=== PATIENT | female | born 1960 | race Hispanic/Latino ===

== ENCOUNTER 2020-09-02 12:05 | Inpatient (IN) | payer SELFPAY ==
[~2020-09-02] VITALS: Ht 154.9 cm; Wt 57.2 kg
[2020-09-02] MEDS ORDERED: SODIUM CHLORIDE 0.9% 1000ML 1,000 ML IV STA ×2 (12:37→14:02)
[2020-09-02] MEDS ORDERED: VANCOMYCIN 1GM/NS 250 ML 250 ML IV ONE (12:45)
[2020-09-02] MEDS ORDERED: CEFEPIME 2 GM/NS 0.9% 100 ML 100 ML IV ONE (12:45)
[2020-09-02 13:47] LABS: BASOPHILS % 0.2 % (0.0-1.0); EOSINOPHILS # (AUTO) 0.2 (0.0-0.4); EOSINOPHILS % 0.8 % (0.0-6.0); HEMATOCRIT 29.1 % (34.2-44.1); HEMOGLOBIN 9.6 g/dL (12.0-16.0); LYMPHOCYTES # (AUTO) 0.9 (1.0-3.2); LYMPHOCYTES % 4.5 % (18.0-39.1); MEAN CORPUSCULAR HEMOGLOBIN 29.6 pg (28-32); MEAN CORPUSCULAR VOLUME 89.8 fL (81-99); MONOCYTES # (AUTO) 0.8 (0.2-0.8); MONOCYTES % 4.3 % (4.4-11.3); NEUTROPHILS # (AUTO) 16.9 (2.1-6.9); NEUTROPHILS % 89.3 % (38.7-80.0); RED BLOOD COUNT 3.24 x10e6/uL (3.6-5.1); RED CELL DISTRIBUTION WIDTH 16.1 % (11.7-14.4)
[2020-09-02 13:53] LABS: PLATELET COUNT 7 x10e3/uL (140-360)
[2020-09-02 13:55] LABS: INR 1.06; PROTHROMBIN TIME 14.5 seconds (11.9-14.5)
[2020-09-02 13:56] LABS: PARTIAL THROMBOPLASTIN TIME 36.5 seconds (23.8-35.5)
[2020-09-02 14:11] LABS: ALBUMIN 2.6 g/dL (3.5-5.0); ALBUMIN/GLOBULIN RATIO 0.6 (0.8-2.0); CALCIUM 7.7 mg/dL (8.4-10.2); CREATININE, SERUM 1.14 mg/dL (0.57-1.11); MAGNESIUM 1.5 MG/DL (1.3-2.1)
[2020-09-02 14:15] LABS: B-TYPE NATRIURETIC PEPTIDE2 468.6 pg/mL (0-100)
[2020-09-02 14:19] LABS: CREATINE KINASE MB 0.2 ng/mL (0-5.0)
[2020-09-02 14:23] LABS: CLARITY,URINE SL CLOUDY (CLEAR); COLOR,URINE YELLOW (YELLOW); KETONES,URINE TRACE (NEGATIVE); LEUKOCYTE ESTERASE ,URINE NEGATIVE (NEGATIVE); NITRITE,URINE NEGATIVE (NEGATIVE); PROTEIN,URINE DIPSTICK 2+ (NEGATIVE)
[2020-09-02 14:25] LABS: ANISOCYTOSIS SLIGHT; PLATELET ESTIMATE MARKEDLY DECREASED; PLATELET MORPHOLOGY COMMENT NORMAL; RBC MORPHOLOGY COMMENT NORMAL
[2020-09-02 14:31] LABS: BACTERIA,URINE FEW /HPF; RBC,URINE 0-5 /HPF (0-5); WBC,URINE (MAN) 0-5 /HPF (0-5)
[2020-09-02 14:32] LABS: AMORPHOUS SEDIMENT,URINE FEW (FEW); EPITHELIAL CELLS,URINE MODERATE /LPF
[2020-09-02] MEDS ORDERED: SODIUM CHLORIDE 0.9% 500ML 500 ML ONE (15:48)
[2020-09-02] MEDS: NOREPINEPHRINE INJ 4MG/4ML 8 MG in DEXTROSE 5% 250ML 250 ML IV SCH (17:00)
[2020-09-02] MEDS ORDERED: ONDANSETRON HCL INJ 2MG/ML 2ML 2 MG/ML VIAL IV PRN (17:45)
[2020-09-02] MEDS ORDERED: SODIUM CHLORIDE 0.9% 1000ML 1,000 ML IV SCH (17:45)
[2020-09-02] MEDS ORDERED: SODIUM CHLORIDE 0.9% 100 ML ONE (18:33)
[2020-09-02] MEDS ORDERED: IOPAMIDOL 370 MG/ML 200 ML INFUS..BTL INJ ONE (18:33)
[2020-09-02] MEDS: PIPER-TAZ 3.375 GM 50 ML IV SCH (20:01)
[2020-09-02] MEDS ORDERED: NOREPINEPHRINE 8 MG/D5W 250 ML 250 ML ONE (20:57)
[2020-09-02 21:11] LABS: FERRITIN 99.06 ng/mL (4.63-204.00)
[2020-09-02] MEDS: METRONIDAZOLE 500MG/NS 100ML 100 ML IV SCH (21:15)
[2020-09-02] MEDS ORDERED: SODIUM CHLORIDE 0.9% 250ML 250 ML ONE (21:33)
[2020-09-02] MEDS ORDERED: VASOPRESSIN INJ 20 UNIT/ML VIAL ONE (23:13)
[2020-09-02] MEDS ORDERED: DEXTROSE 5% 50ML 50 ML IV ONE (23:16)
[2020-09-02] MEDS: VASOPRESSIN 60 UNIT in DEXTROSE 5% 50ML 57 ML IV SCH (23:17)
[2020-09-03] VITALS (23 sets, daily range): BP systolic 83–132; BP diastolic 39–75
[2020-09-03] MEDS ORDERED: NOREPINEPHRINE 8 MG/D5W 250 ML 250 ML ONE ×2 (00:22→04:39)
[2020-09-03] MEDS: NOREPINEPHRINE INJ 4MG/4ML 8 MG in DEXTROSE 5% 250ML 250 ML IV SCH ×2 (00:27→05:06)
[2020-09-03 02:26] LABS: CREATINE KINASE MB 5.7 ng/mL (0-5.0)
[2020-09-03] MEDS: PIPER-TAZ 3.375 GM 50 ML IV SCH (03:48)
[2020-09-03] MEDS: METRONIDAZOLE 500MG/NS 100ML 100 ML IV SCH ×3 (05:27→20:37)
[2020-09-03 05:35] LABS: BASOPHILS # (AUTO) 0.1 (0.0-0.1); BASOPHILS % 0.3 % (0.0-1.0); HEMATOCRIT 23.7 % (34.2-44.1); HEMOGLOBIN 7.9 g/dL (12.0-16.0); LYMPHOCYTES # (AUTO) 3.4 (1.0-3.2); LYMPHOCYTES % 9.1 % (18.0-39.1); MEAN CORPUSCULAR HEMOGLOBIN 30.5 pg (28-32); MEAN CORPUSCULAR HGB CONC 33.3 g/dL (31-35); MEAN CORPUSCULAR VOLUME 91.5 fL (81-99); MONOCYTES % 5.4 % (4.4-11.3); NEUTROPHILS # (AUTO) 31.6 (2.1-6.9); PLATELET COUNT 56 x10e3/uL (140-360); RED BLOOD COUNT 2.59 x10e6/uL (3.6-5.1); RED CELL DISTRIBUTION WIDTH 16.9 % (11.7-14.4)
[2020-09-03 05:54] LABS: ALBUMIN 2.1 g/dL (3.5-5.0); ALBUMIN/GLOBULIN RATIO 0.7 (0.8-2.0); ANION GAP 21.4 mmol/L (8-16); CREATININE, SERUM 1.23 mg/dL (0.57-1.11); POTASSIUM 3.4 mmol/L (3.5-5.1)
[2020-09-03 06:02] LABS: CALCIUM 6.4 mg/dL (8.4-10.2)
[2020-09-03] MEDS ORDERED: ACETAMINOPHEN 325 MG TAB PO PRN (07:45)
[2020-09-03] MEDS ORDERED: POTASSIUM CHLORIDE 20MEQ/100ML 100 ML IV ONE (08:30)
[2020-09-03] MEDS ORDERED: CALCIUM GLUCONATE 10% INJ 9.3 MEQ in SODIUM CHLORIDE 0.9% 100 ML 100 ML IV ONE (08:30)
[2020-09-03 10:00] LABS: CREATINE KINASE MB 7.5 ng/mL (0-5.0)
[2020-09-03] MEDS ORDERED: MIDAZOLAM HCL 5MG/ML 10ML VIAL 100 ML IV ONE (10:23)
[2020-09-03] MEDS ORDERED: FENTANYL 2000MCG/NS 250 250 ML ONE (10:23)
[2020-09-03] MEDS ORDERED: SODIUM CHLORIDE 0.9% 1000ML 1,000 ML ONE (10:47)
[2020-09-03] MEDS: FENTANYL 2000MCG/NS 250 250 ML IV SCH (10:52)
[2020-09-03] MEDS: MIDAZOLAM HCL 5MG/ML 10ML VIAL 100 ML IV PRN ×2 (10:54→20:13)
[2020-09-03] MEDS ORDERED: DEXTROSE 50% SYRINGE 50 ML IV PRN ×2 (11:15→14:45)
[2020-09-03 11:45] LABS: BAND NEUTROPHILS % (MANUAL) 2 %; LYMPHOCYTES % (MANUAL) 3 % (19-48); METAMYELOCYTES % (MANUAL) 3 % (0-0); MONOCYTES % (MANUAL) 1 % (3.4-9.0); NEUTROPHILS % (MANUAL) 88 % (40-74); NUCLEATED RED BLOOD CELLS 2; PROMYELOCYTES % (MANUAL) 1 % (0-0); RBC MORPHOLOGY COMMENT NORMAL
[2020-09-03 11:46] LABS: PLATELET MORPHOLOGY COMMENT NORMAL; POLYCHROMASIA FEW
[2020-09-03 11:47] LABS: PLATELET ESTIMATE ADEQUATE; SPHEROCYTES FEW
[2020-09-03] MEDS ORDERED: INSULIN LISPRO 100 UNIT/1 ML 3ML VIAL SQ SCH (12:00)
[2020-09-03] MEDS: CEFEPIME 1GM/NS 0.9% 50 ML 50 ML IV SCH (12:43)
[2020-09-03 12:53] LABS: ABG PCO2 29 mmHg (35-45); ABG PH 7.44 (7.35-7.45); ABG PO2 295 mmHg (80-105)
[2020-09-03 12:54] LABS: ABG HCO3 20 mmol/L (22-26); ABG TCO2 21
[2020-09-03] MEDS ORDERED: SODIUM CHLORIDE 0.9% 250ML 250 ML ONE (13:18)
[2020-09-03] MEDS ORDERED: VECURONIUM BROMIDE FOR INJ 20 MG VIAL ONE (13:22)
[2020-09-03] MEDS ORDERED: ETOMIDATE 2 MG/ML 10 ML INJ IV ONE (13:22)
[2020-09-03] MEDS ORDERED: SUCCINYLCHOLINE CHLORIDE 20 MG/ML 10ML VIAL ONE (13:22)
[2020-09-03] MEDS ORDERED: MIDAZOLAM HCL 2 MG/2 ML VIAL ONE (13:22)
[2020-09-03] MEDS ORDERED: WATER STERILE 10 ML VIAL ONE (13:22)
[2020-09-03 15:27] LABS: FREE T4 (FREE THYROXINE) 0.91 ng/dL (0.8-1.8); THYROID STIMULATING HORMONE 0.708 uIU/mL (0.350-4.940)
[2020-09-03] MEDS ORDERED: INSULIN REGULAR, HUMAN 3ML VL 100 UNIT in SODIUM CHLORIDE 0.9% 100 ML IV SCH ×2 (15:30)
[2020-09-03] MEDS: VASOPRESSIN 60 UNIT in DEXTROSE 5% 50ML 57 ML IV SCH (23:00)
[2020-09-03 23:52] LABS: BASOPHILS # (AUTO) 0.1 (0.0-0.1); BASOPHILS % 0.2 % (0.0-1.0); LYMPHOCYTES # (AUTO) 2.8 (1.0-3.2); LYMPHOCYTES % 11.7 % (18.0-39.1); MEAN CORPUSCULAR HEMOGLOBIN 30.1 pg (28-32); MEAN CORPUSCULAR VOLUME 88.6 fL (81-99); MONOCYTES # (AUTO) 1.2 (0.2-0.8); MONOCYTES % 4.8 % (4.4-11.3); NEUTROPHILS # (AUTO) 19.9 (2.1-6.9); NEUTROPHILS % 82.4 % (38.7-80.0); PLATELET COUNT 78 x10e3/uL (140-360); RED BLOOD COUNT 2.29 x10e6/uL (3.6-5.1); RED CELL DISTRIBUTION WIDTH 17.5 % (11.7-14.4)
[2020-09-03 23:55] LABS: HEMATOCRIT 20.3 % (34.2-44.1); HEMOGLOBIN 6.9 g/dL (12.0-16.0)
[2020-09-04] VITALS (14 sets, daily range): BP systolic 107–141; BP diastolic 54–79
[2020-09-04] MEDS: CEFEPIME 1GM/NS 0.9% 50 ML 50 ML IV SCH ×2 (00:37→18:59)
[2020-09-04] MEDS ORDERED: SODIUM CHLORIDE 0.9% 250ML 250 ML ONE (00:40)
[2020-09-04] MEDS: METRONIDAZOLE 500MG/NS 100ML 100 ML IV SCH ×4 (03:00→19:00)
[2020-09-04 04:52] LABS: BASOPHILS # (AUTO) 0.1 (0.0-0.1); BASOPHILS % 0.3 % (0.0-1.0); EOSINOPHILS # (AUTO) 0.1 (0.0-0.4); EOSINOPHILS % 0.6 % (0.0-6.0); LYMPHOCYTES # (AUTO) 2.1 (1.0-3.2); LYMPHOCYTES % 10.1 % (18.0-39.1); MEAN CORPUSCULAR HEMOGLOBIN 29.5 pg (28-32); MEAN CORPUSCULAR HGB CONC 32.5 g/dL (31-35); MEAN CORPUSCULAR VOLUME 90.6 fL (81-99); MONOCYTES # (AUTO) 0.8 (0.2-0.8); MONOCYTES % 3.8 % (4.4-11.3); NEUTROPHILS # (AUTO) 17.8 (2.1-6.9); NEUTROPHILS % 84.1 % (38.7-80.0); PLATELET COUNT 59 x10e3/uL (140-360); RED BLOOD COUNT 2.24 x10e6/uL (3.6-5.1); RED CELL DISTRIBUTION WIDTH 17.3 % (11.7-14.4)
[2020-09-04 05:04] LABS: HEMATOCRIT 20.3 % (34.2-44.1); HEMOGLOBIN 6.6 g/dL (12.0-16.0)
[2020-09-04 05:14] LABS: ALANINE AMINOTRANSFERASE 20 IU/L (0-55); ALBUMIN/GLOBULIN RATIO 0.6 (0.8-2.0); ALKALINE PHOSPHATASE 106 IU/L (40-150); ANION GAP 12.7 mmol/L (8-16); BLOOD UREA NITROGEN 44 mg/dL (7-26); BUN/CREATININE RATIO 58 (6-25); CARBON DIOXIDE 24 mmol/L (22-29); CHLORIDE 109 mmol/L (98-107); CREATININE, SERUM 0.76 mg/dL (0.57-1.11); EST GLOMERULAR FILTRATION RATE > 60 ML/MIN (60-); GLUCOSE 126 mg/dL (74-118); MAGNESIUM 1.5 MG/DL (1.3-2.1); SODIUM 143 mmol/L (136-145)
[2020-09-04 05:29] LABS: CALCIUM 6.9 mg/dL (8.4-10.2); POTASSIUM 2.7 mmol/L (3.5-5.1)
[2020-09-04] MEDS: MIDAZOLAM HCL 5MG/ML 10ML VIAL 100 ML IV PRN (06:26)
[2020-09-04] MEDS: FENTANYL 2000MCG/NS 250 250 ML IV SCH (06:27)
[2020-09-04] MEDS ORDERED: POTASSIUM CHLORIDE 20MEQ/100ML 200 ML IV ONE (06:30)
[2020-09-04] MEDS ORDERED: SODIUM CHLORIDE 0.9% 250ML 250 ML IV ONE (06:45)
[2020-09-04 07:32] LABS: OVALOCYTES MODERATE; RBC MORPHOLOGY COMMENT ABNORMAL
[2020-09-04 07:33] LABS: POLYCHROMASIA FEW
[2020-09-04 07:35] LABS: PLATELET ESTIMATE MODERATELY DECREASED; PLATELET MORPHOLOGY COMMENT NORMAL
[2020-09-04] MEDS ORDERED: CALCIUM GLUCONATE 10% INJ 9.3 MEQ in SODIUM CHLORIDE 0.9% 100 ML 100 ML IV ONE (11:00)
[2020-09-04] MEDS: PROPOFOL IV EMULSION 10MG/ML 100 ML IV SCH ×2 (11:30→23:30)
[2020-09-04] MEDS: NOREPINEPHRINE INJ 4MG/4ML 8 MG in DEXTROSE 5% 250ML 250 ML IV SCH (16:30)
[2020-09-04 16:38] LABS: ABG HCO3 26 mmol/L (22-26); ABG PCO2 32 mmHg (35-45); ABG PH 7.51 (7.35-7.45); ABG PO2 86 mmHg (80-105); ABG TCO2 27
[2020-09-04] MEDS: VASOPRESSIN 60 UNIT in DEXTROSE 5% 50ML 57 ML IV SCH (23:00)
[2020-09-05] VITALS (14 sets, daily range): BP systolic 92–115; BP diastolic 51–75
[2020-09-05] MEDS: METRONIDAZOLE 500MG/NS 100ML 100 ML IV SCH ×4 (00:02→18:00)
[2020-09-05] MEDS: CEFEPIME 1GM/NS 0.9% 50 ML 50 ML IV SCH ×2 (00:02→13:04)
[2020-09-05] MEDS ORDERED: RIFAXIMIN 200 MG TAB PO STA (00:42)
[2020-09-05] MEDS ORDERED: RIFAXIMIN 550 MG TABLET ONE (01:42)
[2020-09-05 05:07] LABS: BASOPHILS % 0.1 % (0.0-1.0); LYMPHOCYTES # (AUTO) 1.1 (1.0-3.2); LYMPHOCYTES % 11.4 % (18.0-39.1); MEAN CORPUSCULAR HEMOGLOBIN 29.4 pg (28-32); MEAN CORPUSCULAR HGB CONC 32.8 g/dL (31-35); MEAN CORPUSCULAR VOLUME 89.6 fL (81-99); MONOCYTES # (AUTO) 0.4 (0.2-0.8); MONOCYTES % 3.9 % (4.4-11.3); NEUTROPHILS % 83.3 % (38.7-80.0); RED BLOOD COUNT 2.21 x10e6/uL (3.6-5.1); RED CELL DISTRIBUTION WIDTH 18.6 % (11.7-14.4)
[2020-09-05 05:27] LABS: HEMATOCRIT 19.8 % (34.2-44.1); PLATELET COUNT 23 x10e3/uL (140-360)
[2020-09-05 05:28] LABS: HEMOGLOBIN 6.5 g/dL (12.0-16.0)
[2020-09-05 05:29] LABS: ALANINE AMINOTRANSFERASE 17 IU/L (0-55); ALBUMIN 1.8 g/dL (3.5-5.0); ALBUMIN/GLOBULIN RATIO 0.5 (0.8-2.0); ALKALINE PHOSPHATASE 98 IU/L (40-150); ANION GAP 11.3 mmol/L (8-16); BLOOD UREA NITROGEN 32 mg/dL (7-26); BUN/CREATININE RATIO 55 (6-25); CALCIUM 7.2 mg/dL (8.4-10.2); CARBON DIOXIDE 26 mmol/L (22-29); CHLORIDE 114 mmol/L (98-107); CREATININE, SERUM 0.58 mg/dL (0.57-1.11); EST GLOMERULAR FILTRATION RATE > 60 ML/MIN (60-); GLUCOSE 139 mg/dL (74-118); POTASSIUM 3.3 mmol/L (3.5-5.1); SODIUM 148 mmol/L (136-145)
[2020-09-05] MEDS ORDERED: SODIUM CHLORIDE 0.9% 250ML 250 ML IV NR (06:30)
[2020-09-05] MEDS ORDERED: RIFAXIMIN 200 MG TAB PO SCH (09:00)
[2020-09-05] MEDS: RIFAXIMIN 550 MG TABLET PO SCH ×2 (09:02→17:00)
[2020-09-05] MEDS ORDERED: SODIUM CHLORIDE 0.9% 250ML 250 ML ONE ×2 (10:03→16:05)
[2020-09-05 14:51] LABS: ABG HCO3 30 mmol/L (22-26); ABG PCO2 38 mmHg (35-45); ABG PO2 219 mmHg (80-105); ABG TCO2 31
[2020-09-05] MEDS: NOREPINEPHRINE INJ 4MG/4ML 8 MG in DEXTROSE 5% 250ML 250 ML IV SCH (16:30)
[2020-09-05] MEDS: VASOPRESSIN 60 UNIT in DEXTROSE 5% 50ML 57 ML IV SCH (20:46)
[2020-09-05] MEDS: PROPOFOL IV EMULSION 10MG/ML 100 ML IV SCH (21:01)
[2020-09-06] VITALS (24 sets, daily range): BP systolic 100–126; BP diastolic 46–76
[2020-09-06] MEDS: METRONIDAZOLE 500MG/NS 100ML 100 ML IV SCH ×5 (00:10→23:16)
[2020-09-06] MEDS: CEFEPIME 1GM/NS 0.9% 50 ML 50 ML IV SCH ×2 (00:10→11:13)
[2020-09-06 04:35] LABS: BASOPHILS % 0.2 % (0.0-1.0); EOSINOPHILS % 0.1 % (0.0-6.0); HEMATOCRIT 28.3 % (34.2-44.1); HEMOGLOBIN 9.1 g/dL (12.0-16.0); LYMPHOCYTES # (AUTO) 1.5 (1.0-3.2); LYMPHOCYTES % 16.1 % (18.0-39.1); MEAN CORPUSCULAR HEMOGLOBIN 29.2 pg (28-32); MEAN CORPUSCULAR HGB CONC 32.2 g/dL (31-35); MEAN CORPUSCULAR VOLUME 90.7 fL (81-99); MONOCYTES # (AUTO) 0.4 (0.2-0.8); MONOCYTES % 4.4 % (4.4-11.3); NEUTROPHILS # (AUTO) 7.5 (2.1-6.9); NEUTROPHILS % 78.7 % (38.7-80.0); RED BLOOD COUNT 3.12 x10e6/uL (3.6-5.1); RED CELL DISTRIBUTION WIDTH 17.3 % (11.7-14.4)
[2020-09-06 04:40] LABS: PLATELET COUNT 39 x10e3/uL (140-360)
[2020-09-06 04:56] LABS: ALANINE AMINOTRANSFERASE 19 IU/L (0-55); ALBUMIN 1.9 g/dL (3.5-5.0); ALBUMIN/GLOBULIN RATIO 0.5 (0.8-2.0); ALKALINE PHOSPHATASE 97 IU/L (40-150); ANION GAP 12.4 mmol/L (8-16); BLOOD UREA NITROGEN 29 mg/dL (7-26); BUN/CREATININE RATIO 50 (6-25); CALCIUM 7.4 mg/dL (8.4-10.2); CARBON DIOXIDE 26 mmol/L (22-29); CHLORIDE 115 mmol/L (98-107); CREATININE, SERUM 0.58 mg/dL (0.57-1.11); EST GLOMERULAR FILTRATION RATE > 60 ML/MIN (60-); GLUCOSE 97 mg/dL (74-118); MAGNESIUM 1.9 MG/DL (1.3-2.1); POTASSIUM 3.4 mmol/L (3.5-5.1); SODIUM 150 mmol/L (136-145)
[2020-09-06] MEDS ORDERED: ACETAMINOPHEN 325 MG TAB NG PRN (06:45)
[2020-09-06] MEDS ORDERED: POTASSIUM CHLORIDE 20MEQ/100ML 100 ML IV ONE (06:45)
[2020-09-06] MEDS ORDERED: [UNRECOGNIZED DRUG - OTHER] IV ONE (06:47)
[2020-09-06] MEDS ORDERED: POTASSIUM CHLORIDE 20MEQ/100ML 100 ML ONE (06:47)
[2020-09-06] MEDS: RIFAXIMIN 550 MG TABLET PO SCH ×2 (08:01→19:09)
[2020-09-06] MEDS: D5NS/KCL 20MEQ 1,000 ML IV SCH (08:01)
[2020-09-06] MEDS: NOREPINEPHRINE INJ 4MG/4ML 8 MG in DEXTROSE 5% 250ML 250 ML IV SCH (16:30)
[2020-09-06 16:39] LABS: ABG HCO3 30 mmol/L (22-26); ABG PCO2 39 mmHg (35-45); ABG PH 7.49 (7.35-7.45); ABG PO2 196 mmHg (80-105); ABG TCO2 31
[2020-09-06] MEDS ORDERED: SODIUM CHLORIDE 0.9% 250ML 250 ML ONE (17:00)
[2020-09-06] MEDS: VASOPRESSIN 60 UNIT in DEXTROSE 5% 50ML 57 ML IV SCH (22:58)
[2020-09-06] MEDS: MORPHINE SULFATE INJ 2 MG/ML SYR IV PRN (23:07)
[2020-09-07] VITALS (24 sets, daily range): BP systolic 111–129; BP diastolic 60–72
[2020-09-07] MEDS: CEFEPIME 1GM/NS 0.9% 50 ML 50 ML IV SCH ×2 (00:02→13:37)
[2020-09-07] MEDS: D5NS/KCL 20MEQ 1,000 ML IV SCH (01:53)
[2020-09-07 05:04] LABS: BASOPHILS % 0.2 % (0.0-1.0); HEMATOCRIT 28.5 % (34.2-44.1); HEMOGLOBIN 8.9 g/dL (12.0-16.0); LYMPHOCYTES # (AUTO) 0.7 (1.0-3.2); LYMPHOCYTES % 8.9 % (18.0-39.1); MEAN CORPUSCULAR HEMOGLOBIN 28.5 pg (28-32); MEAN CORPUSCULAR HGB CONC 31.2 g/dL (31-35); MEAN CORPUSCULAR VOLUME 91.3 fL (81-99); MONOCYTES # (AUTO) 0.3 (0.2-0.8); MONOCYTES % 3.4 % (4.4-11.3); NEUTROPHILS # (AUTO) 7.1 (2.1-6.9); RED BLOOD COUNT 3.12 x10e6/uL (3.6-5.1); RED CELL DISTRIBUTION WIDTH 17.6 % (11.7-14.4)
[2020-09-07 05:08] LABS: PLATELET COUNT 48 x10e3/uL (140-360)
[2020-09-07 05:19] LABS: ALANINE AMINOTRANSFERASE 19 IU/L (0-55); ALBUMIN/GLOBULIN RATIO 0.6 (0.8-2.0); ALKALINE PHOSPHATASE 118 IU/L (40-150); BLOOD UREA NITROGEN 21 mg/dL (7-26); BUN/CREATININE RATIO 40 (6-25); CARBON DIOXIDE 29 mmol/L (22-29); CHLORIDE 119 mmol/L (98-107); CREATININE, SERUM 0.53 mg/dL (0.57-1.11); EST GLOMERULAR FILTRATION RATE > 60 ML/MIN (60-); GLUCOSE 165 mg/dL (74-118); SODIUM 154 mmol/L (136-145)
[2020-09-07 05:20] LABS: AMYLASE 69 U/L (25-125); LIPASE 72 U/L (8-78)
[2020-09-07 05:39] LABS: ANION GAP 9.8 mmol/L (8-16); POTASSIUM 3.8 mmol/L (3.5-5.1)
[2020-09-07 05:40] LABS: CALCIUM 6.9 mg/dL (8.4-10.2)
[2020-09-07] MEDS: METRONIDAZOLE 500MG/NS 100ML 100 ML IV SCH ×4 (06:06→23:28)
[2020-09-07] MEDS: MORPHINE SULFATE INJ 2 MG/ML SYR IV PRN (06:35)
[2020-09-07] MEDS: RIFAXIMIN 550 MG TABLET PO SCH ×2 (08:43→17:59)
[2020-09-07] MEDS ORDERED: LACTULOSE SYRUP 20 GM/30 ML UDC NG SCH (09:00)
[2020-09-07] MEDS ORDERED: MORPHINE SULFATE INJ 2 MG/ML SYR IV PRN (10:45)
[2020-09-07] MEDS ORDERED: HYDRALAZINE HCL 20 MG/ML VIAL IV PRN (10:45)
[2020-09-07] MEDS ORDERED: ACETAMINOPHEN 325 MG TAB PO PRN (10:45)
[2020-09-07] MEDS: PROPOFOL IV EMULSION 10MG/ML 100 ML IV SCH (11:30)
[2020-09-07] MEDS ORDERED: INSULIN LISPRO 100 UNIT/1 ML 3ML VIAL SQ ONE (15:15)
[2020-09-07] MEDS ORDERED: DEXTROSE 50% SYRINGE 50 ML IV PRN (15:15)
[2020-09-07] MEDS: PANTOPRAZOLE 40 MG 10ML VIAL IV SCH (17:59)
[2020-09-07] MEDS: BALSAM PERU/CASTOR OIL 60 GM OINT...G. TP SCH (18:07)
[2020-09-07] MEDS: INSULIN LISPRO 100 UNIT/1 ML 3ML VIAL SQ SCH ×3 (18:18→21:13)
[2020-09-07] MEDS ORDERED: INSULIN GLARGINE 100 UNITS/ML VIAL SQ SCH (21:00)
[2020-09-08] VITALS (18 sets, daily range): BP systolic 117–134; BP diastolic 69–83
[2020-09-08] MEDS: CEFEPIME 1GM/NS 0.9% 50 ML 50 ML IV SCH ×3 (00:25→23:30)
[2020-09-08] MEDS: METRONIDAZOLE 500MG/NS 100ML 100 ML IV SCH ×3 (06:02→17:14)
[2020-09-08] MEDS: SUCRALFATE 1 GM/10 ML SUSP NG SCH ×4 (06:02→23:30)
[2020-09-08 06:19] LABS: BASOPHILS % 0.3 % (0.0-1.0); HEMATOCRIT 32.2 % (34.2-44.1); LYMPHOCYTES % 14.1 % (18.0-39.1); MEAN CORPUSCULAR HEMOGLOBIN 29.1 pg (28-32); MEAN CORPUSCULAR HGB CONC 31.1 g/dL (31-35); MEAN CORPUSCULAR VOLUME 93.6 fL (81-99); MONOCYTES # (AUTO) 0.4 (0.2-0.8); NEUTROPHILS # (AUTO) 5.6 (2.1-6.9); RED BLOOD COUNT 3.44 x10e6/uL (3.6-5.1); RED CELL DISTRIBUTION WIDTH 17.7 % (11.7-14.4)
[2020-09-08 06:22] LABS: PLATELET COUNT 34 x10e3/uL (140-360)
[2020-09-08 06:40] LABS: INR 1.39
[2020-09-08 06:54] LABS: ALANINE AMINOTRANSFERASE 21 IU/L (0-55); ALBUMIN 1.9 g/dL (3.5-5.0); ALBUMIN/GLOBULIN RATIO 0.5 (0.8-2.0); ALKALINE PHOSPHATASE 178 IU/L (40-150); ANION GAP 11.2 mmol/L (8-16); BLOOD UREA NITROGEN 21 mg/dL (7-26); BUN/CREATININE RATIO 36 (6-25); CALCIUM 7.6 mg/dL (8.4-10.2); CARBON DIOXIDE 28 mmol/L (22-29); CHLORIDE 124 mmol/L (98-107); CREATININE, SERUM 0.59 mg/dL (0.57-1.11); EST GLOMERULAR FILTRATION RATE > 60 ML/MIN (60-); GLUCOSE 338 mg/dL (74-118); POTASSIUM 4.2 mmol/L (3.5-5.1); SODIUM 159 mmol/L (136-145)
[2020-09-08] MEDS: INSULIN LISPRO 100 UNIT/1 ML 3ML VIAL SQ SCH ×7 (07:59→20:47)
[2020-09-08] MEDS: BALSAM PERU/CASTOR OIL 60 GM OINT...G. TP SCH ×2 (08:00→20:41)
[2020-09-08] MEDS: RIFAXIMIN 550 MG TABLET PO SCH ×2 (08:00→16:45)
[2020-09-08] MEDS: PANTOPRAZOLE 40 MG 10ML VIAL IV SCH ×2 (08:00→16:45)
[2020-09-08] MEDS ORDERED: INSULIN GLARGINE 100 UNITS/ML VIAL SQ SCH (21:00)
[2020-09-08] MEDS ORDERED: SODIUM CHLORIDE 0.9% 250ML 250 ML ONE (23:40)
[2020-09-09] VITALS (8 sets, daily range): BP systolic 112–137; BP diastolic 70–79
[2020-09-09] MEDS: METRONIDAZOLE 500MG/NS 100ML 100 ML IV SCH ×4 (00:32→17:20)
[2020-09-09] MEDS: SUCRALFATE 1 GM/10 ML SUSP NG SCH ×3 (05:34→17:20)
[2020-09-09 06:05] LABS: HEMATOCRIT 31.7 % (34.2-44.1); MEAN CORPUSCULAR HEMOGLOBIN 29.4 pg (28-32); MEAN CORPUSCULAR HGB CONC 31.5 g/dL (31-35); MEAN CORPUSCULAR VOLUME 93.2 fL (81-99)
[2020-09-09 06:06] LABS: BASOPHILS % 0.3 % (0.0-1.0); EOSINOPHILS % 0.3 % (0.0-6.0); LYMPHOCYTES # (AUTO) 1.1 (1.0-3.2); LYMPHOCYTES % 14.3 % (18.0-39.1); MONOCYTES # (AUTO) 0.4 (0.2-0.8); NEUTROPHILS # (AUTO) 6.1 (2.1-6.9); NEUTROPHILS % 79.7 % (38.7-80.0); RED CELL DISTRIBUTION WIDTH 17.9 % (11.7-14.4)
[2020-09-09 06:11] LABS: PLATELET COUNT 43 x10e3/uL (140-360)
[2020-09-09 06:26] LABS: ALANINE AMINOTRANSFERASE 24 IU/L (0-55); ALBUMIN 2.1 g/dL (3.5-5.0); ALBUMIN/GLOBULIN RATIO 0.6 (0.8-2.0); ALKALINE PHOSPHATASE 206 IU/L (40-150); BLOOD UREA NITROGEN 18 mg/dL (7-26); BUN/CREATININE RATIO 29 (6-25); CALCIUM 7.4 mg/dL (8.4-10.2); CARBON DIOXIDE 29 mmol/L (22-29); CHLORIDE 122 mmol/L (98-107); CREATININE, SERUM 0.62 mg/dL (0.57-1.11); EST GLOMERULAR FILTRATION RATE > 60 ML/MIN (60-); GLUCOSE 272 mg/dL (74-118); SODIUM 160 mmol/L (136-145)
[2020-09-09] MEDS: INSULIN LISPRO 100 UNIT/1 ML 3ML VIAL SQ SCH ×6 (08:00→16:30)
[2020-09-09] MEDS: PANTOPRAZOLE 40 MG 10ML VIAL IV SCH ×2 (09:19→16:45)
[2020-09-09] MEDS: RIFAXIMIN 550 MG TABLET PO SCH ×2 (09:19→16:45)
[2020-09-09] MEDS: IRON SUCROSE 100 MG in SODIUM CHLORIDE 0.9% 100 ML 100 ML IV SCH (10:00)
[2020-09-09] MEDS: CEFEPIME 1GM/NS 0.9% 50 ML 50 ML IV SCH (12:00)
[2020-09-09] MEDS: BALSAM PERU/CASTOR OIL 60 GM OINT...G. TP SCH ×3 (14:52→21:00)
[2020-09-09] MEDS: TRAMADOL HCL 50 MG TAB PO PRN (16:45)
[2020-09-09] MEDS ORDERED: INSULIN GLARGINE 100 UNITS/ML VIAL SQ SCH (21:00)
[2020-09-09] MEDS: MORPHINE SULFATE INJ 2 MG/ML SYR IV PRN (22:57)
[2020-09-10] VITALS (9 sets, daily range): BP systolic 107–135; BP diastolic 61–77
[2020-09-10] MEDS: SUCRALFATE 1 GM/10 ML SUSP NG SCH ×5 (00:16→23:16)
[2020-09-10] MEDS: METRONIDAZOLE 500 MG TAB PO SCH ×4 (06:03→23:16)
[2020-09-10] MEDS: INSULIN LISPRO 100 UNIT/1 ML 3ML VIAL SQ SCH ×6 (08:00→17:13)
[2020-09-10] MEDS: PANTOPRAZOLE 40 MG 10ML VIAL IV SCH ×2 (08:27→17:12)
[2020-09-10] MEDS: RIFAXIMIN 550 MG TABLET PO SCH ×2 (08:27→17:12)
[2020-09-10] MEDS: MORPHINE SULFATE INJ 2 MG/ML SYR IV PRN ×3 (08:31→17:48)
[2020-09-10 08:56] LABS: BASOPHILS % 0.2 % (0.0-1.0); EOSINOPHILS # (AUTO) 0.1 (0.0-0.4); EOSINOPHILS % 0.9 % (0.0-6.0); HEMATOCRIT 30.7 % (34.2-44.1); HEMOGLOBIN 9.4 g/dL (12.0-16.0); LYMPHOCYTES # (AUTO) 1.9 (1.0-3.2); LYMPHOCYTES % 16.9 % (18.0-39.1); MEAN CORPUSCULAR HEMOGLOBIN 28.2 pg (28-32); MEAN CORPUSCULAR HGB CONC 30.6 g/dL (31-35); MEAN CORPUSCULAR VOLUME 92.2 fL (81-99); MONOCYTES # (AUTO) 0.5 (0.2-0.8); MONOCYTES % 4.4 % (4.4-11.3); NEUTROPHILS # (AUTO) 8.8 (2.1-6.9); NEUTROPHILS % 77.1 % (38.7-80.0); PLATELET COUNT 50 x10e3/uL (140-360); RED BLOOD COUNT 3.33 x10e6/uL (3.6-5.1); RED CELL DISTRIBUTION WIDTH 17.5 % (11.7-14.4)
[2020-09-10 09:42] LABS: ANION GAP 13.1 mmol/L (8-16); BLOOD UREA NITROGEN 19 mg/dL (7-26); BUN/CREATININE RATIO 36 (6-25); CARBON DIOXIDE 25 mmol/L (22-29); CHLORIDE 109 mmol/L (98-107); CREATININE, SERUM 0.53 mg/dL (0.57-1.11); EST GLOMERULAR FILTRATION RATE > 60 ML/MIN (60-); GLUCOSE 309 mg/dL (74-118); MAGNESIUM 1.7 MG/DL (1.3-2.1); PHOSPHORUS 2.8 MG/DL (2.3-4.7); POTASSIUM 4.1 mmol/L (3.5-5.1)
[2020-09-10 09:45] LABS: CALCIUM 6.9 mg/dL (8.4-10.2); SODIUM 143 mmol/L (136-145)
[2020-09-10] MEDS: IRON SUCROSE 100 MG in SODIUM CHLORIDE 0.9% 100 ML 100 ML IV SCH (10:00)
[2020-09-10] MEDS: BALSAM PERU/CASTOR OIL 60 GM OINT...G. TP SCH ×3 (11:25→20:52)
[2020-09-10] MEDS ORDERED: MAGNESIUM SULF 1GRAM/DEXTROSE 100 ML IV ONE (12:00)
[2020-09-10] MEDS ORDERED: INSULIN GLARGINE 100 UNITS/ML VIAL SQ SCH (21:00)
[2020-09-10] MEDS: ACETAMINOPHEN/CODEINE 300MG - 30MG TAB PO PRN (22:17)
[2020-09-11] VITALS (8 sets, daily range): BP systolic 95–139; BP diastolic 50–88
[2020-09-11] MEDS: MORPHINE SULFATE INJ 2 MG/ML SYR IV PRN ×2 (01:24→11:08)
[2020-09-11 02:26] LABS: CLARITY,URINE CLEAR (CLEAR); COLOR,URINE AMBER (YELLOW); KETONES,URINE TRACE (NEGATIVE); LEUKOCYTE ESTERASE ,URINE NEGATIVE (NEGATIVE); NITRITE,URINE POSITIVE (NEGATIVE); PROTEIN,URINE DIPSTICK 1+ (NEGATIVE); URINE UROBILINOGEN 1 mg/dL (0.2 - 1)
[2020-09-11 02:33] LABS: BACTERIA,URINE FEW /HPF; EPITHELIAL CELLS,URINE MODERATE /LPF; MUCUS,URINE MODERATE (RARE)
[2020-09-11] MEDS: ACETAMINOPHEN/CODEINE 300MG - 30MG TAB PO PRN (04:47)
[2020-09-11 05:28] LABS: BASOPHILS % 0.3 % (0.0-1.0); EOSINOPHILS # (AUTO) 0.1 (0.0-0.4); EOSINOPHILS % 1.2 % (0.0-6.0); HEMATOCRIT 31.4 % (34.2-44.1); LYMPHOCYTES % 17.1 % (18.0-39.1); MEAN CORPUSCULAR HEMOGLOBIN 29.4 pg (28-32); MEAN CORPUSCULAR HGB CONC 31.8 g/dL (31-35); MEAN CORPUSCULAR VOLUME 92.4 fL (81-99); MONOCYTES # (AUTO) 0.5 (0.2-0.8); MONOCYTES % 3.8 % (4.4-11.3); NEUTROPHILS # (AUTO) 9.1 (2.1-6.9); NEUTROPHILS % 77.1 % (38.7-80.0); PLATELET COUNT 51 x10e3/uL (140-360); RED CELL DISTRIBUTION WIDTH 16.8 % (11.7-14.4)
[2020-09-11 05:52] LABS: ALANINE AMINOTRANSFERASE 27 IU/L (0-55); ALBUMIN 1.9 g/dL (3.5-5.0); ALBUMIN/GLOBULIN RATIO 0.6 (0.8-2.0); ALKALINE PHOSPHATASE 163 IU/L (40-150); BLOOD UREA NITROGEN 17 mg/dL (7-26); BUN/CREATININE RATIO 37 (6-25); CALCIUM 7.2 mg/dL (8.4-10.2); CARBON DIOXIDE 28 mmol/L (22-29); CHLORIDE 107 mmol/L (98-107); CREATININE, SERUM 0.46 mg/dL (0.57-1.11); EST GLOMERULAR FILTRATION RATE > 60 ML/MIN (60-); GLUCOSE 95 mg/dL (74-118); MAGNESIUM 1.9 MG/DL (1.3-2.1); PHOSPHORUS 3.3 MG/DL (2.3-4.7); SODIUM 142 mmol/L (136-145)
[2020-09-11] MEDS: SUCRALFATE 1 GM/10 ML SUSP NG SCH ×4 (06:00→23:19)
[2020-09-11] MEDS: METRONIDAZOLE 500 MG TAB PO SCH ×4 (06:00→23:19)
[2020-09-11] MEDS: INSULIN LISPRO 100 UNIT/1 ML 3ML VIAL SQ SCH ×6 (07:30→17:04)
[2020-09-11] MEDS: IRON SUCROSE 100 MG in SODIUM CHLORIDE 0.9% 100 ML 100 ML IV SCH (09:04)
[2020-09-11] MEDS: BALSAM PERU/CASTOR OIL 60 GM OINT...G. TP SCH ×3 (09:04→21:00)
[2020-09-11] MEDS: RIFAXIMIN 550 MG TABLET PO SCH ×2 (09:04→16:57)
[2020-09-11] MEDS: PANTOPRAZOLE 40 MG 10ML VIAL IV SCH ×2 (09:04→16:57)
[2020-09-11] MEDS: TRAMADOL HCL 50 MG TAB PO PRN (20:50)
[2020-09-11] MEDS ORDERED: INSULIN GLARGINE 100 UNITS/ML VIAL SQ SCH (21:00)
[2020-09-12] VITALS (7 sets, daily range): BP systolic 95–125; BP diastolic 56–76
[2020-09-12] MEDS: MORPHINE SULFATE INJ 2 MG/ML SYR IV PRN (02:38)
[2020-09-12] MEDS: TRAMADOL HCL 50 MG TAB PO PRN (05:11)
[2020-09-12] MEDS: METRONIDAZOLE 500 MG TAB PO SCH ×3 (05:17→17:02)
[2020-09-12] MEDS: SUCRALFATE 1 GM/10 ML SUSP NG SCH ×3 (05:17→17:02)
[2020-09-12 06:43] LABS: BASOPHILS # (AUTO) 0.1 (0.0-0.1); BASOPHILS % 0.5 % (0.0-1.0); EOSINOPHILS # (AUTO) 0.1 (0.0-0.4); EOSINOPHILS % 0.7 % (0.0-6.0); HEMATOCRIT 29.9 % (34.2-44.1); HEMOGLOBIN 9.6 g/dL (12.0-16.0); LYMPHOCYTES # (AUTO) 2.7 (1.0-3.2); LYMPHOCYTES % 15.9 % (18.0-39.1); MEAN CORPUSCULAR HEMOGLOBIN 29.6 pg (28-32); MEAN CORPUSCULAR HGB CONC 32.1 g/dL (31-35); MEAN CORPUSCULAR VOLUME 92.3 fL (81-99); MONOCYTES # (AUTO) 0.7 (0.2-0.8); MONOCYTES % 3.8 % (4.4-11.3); NEUTROPHILS # (AUTO) 13.5 (2.1-6.9); NEUTROPHILS % 78.5 % (38.7-80.0); PLATELET COUNT 97 x10e3/uL (140-360); RED BLOOD COUNT 3.24 x10e6/uL (3.6-5.1); RED CELL DISTRIBUTION WIDTH 16.8 % (11.7-14.4)
[2020-09-12] MEDS ORDERED: POTASSIUM CHLORIDE 10MEQ EA PO ONE (07:20)
[2020-09-12] MEDS ORDERED: FUROSEMIDE INJ 10 MG/ML 4 ML VIAL IV ONE (07:20)
[2020-09-12 07:25] LABS: ANION GAP 12.4 mmol/L (8-16); BLOOD UREA NITROGEN 14 mg/dL (7-26); BUN/CREATININE RATIO 32 (6-25); CALCIUM 7.4 mg/dL (8.4-10.2); CARBON DIOXIDE 27 mmol/L (22-29); CHLORIDE 107 mmol/L (98-107); CREATININE, SERUM 0.44 mg/dL (0.57-1.11); EST GLOMERULAR FILTRATION RATE > 60 ML/MIN (60-); POTASSIUM 3.4 mmol/L (3.5-5.1); SODIUM 143 mmol/L (136-145)
[2020-09-12] MEDS: INSULIN LISPRO 100 UNIT/1 ML 3ML VIAL SQ SCH ×6 (07:30→16:30)
[2020-09-12 07:38] LABS: GLUCOSE 37 mg/dL (74-118)
[2020-09-12] MEDS: ACETAMINOPHEN/CODEINE 300MG - 30MG TAB PO PRN ×3 (09:08→22:28)
[2020-09-12] MEDS: PANTOPRAZOLE 40 MG 10ML VIAL IV SCH ×2 (09:12→16:35)
[2020-09-12] MEDS: BALSAM PERU/CASTOR OIL 60 GM OINT...G. TP SCH ×3 (09:12→21:00)
[2020-09-12] MEDS: RIFAXIMIN 550 MG TABLET PO SCH ×2 (09:12→16:35)
[2020-09-12] MEDS: IRON SUCROSE 100 MG in SODIUM CHLORIDE 0.9% 100 ML 100 ML IV SCH (09:12)
[2020-09-12] MEDS ORDERED: INSULIN GLARGINE 100 UNITS/ML VIAL SQ SCH (21:00)
[2020-09-12] MEDS: INSULIN GLARGINE 100 UNITS/ML VIAL SQ SCH (21:00)
[2020-09-13] VITALS (8 sets, daily range): BP systolic 97–128; BP diastolic 61–99
[2020-09-13] MEDS: SUCRALFATE 1 GM/10 ML SUSP NG SCH ×4 (06:00→17:14)
[2020-09-13] MEDS: METRONIDAZOLE 500 MG TAB PO SCH ×4 (06:00→17:14)
[2020-09-13] MEDS ORDERED: FUROSEMIDE INJ 10 MG/ML 4 ML VIAL IV ONE (06:15)
[2020-09-13] MEDS ORDERED: POTASSIUM CHLORIDE 10MEQ EA PO ONE (06:15)
[2020-09-13 06:22] LABS: BASOPHILS % 0.4 % (0.0-1.0); EOSINOPHILS % 0.5 % (0.0-6.0); HEMATOCRIT 27.4 % (34.2-44.1); HEMOGLOBIN 8.8 g/dL (12.0-16.0); LYMPHOCYTES # (AUTO) 1.6 (1.0-3.2); LYMPHOCYTES % 20.7 % (18.0-39.1); MEAN CORPUSCULAR HEMOGLOBIN 29.2 pg (28-32); MEAN CORPUSCULAR HGB CONC 32.1 g/dL (31-35); MONOCYTES # (AUTO) 0.5 (0.2-0.8); MONOCYTES % 5.7 % (4.4-11.3); NEUTROPHILS # (AUTO) 5.7 (2.1-6.9); NEUTROPHILS % 72.3 % (38.7-80.0); PLATELET COUNT 70 x10e3/uL (140-360); RED BLOOD COUNT 3.01 x10e6/uL (3.6-5.1); RED CELL DISTRIBUTION WIDTH 17.3 % (11.7-14.4)
[2020-09-13 06:54] LABS: ALANINE AMINOTRANSFERASE 29 IU/L (0-55); ALBUMIN 1.9 g/dL (3.5-5.0); ALBUMIN/GLOBULIN RATIO 0.6 (0.8-2.0); ALKALINE PHOSPHATASE 190 IU/L (40-150); ANION GAP 9.8 mmol/L (8-16); BLOOD UREA NITROGEN 7 mg/dL (7-26); BUN/CREATININE RATIO 15 (6-25); CALCIUM 7.2 mg/dL (8.4-10.2); CARBON DIOXIDE 28 mmol/L (22-29); CHLORIDE 108 mmol/L (98-107); CREATININE, SERUM 0.48 mg/dL (0.57-1.11); EST GLOMERULAR FILTRATION RATE > 60 ML/MIN (60-); GLUCOSE 109 mg/dL (74-118); POTASSIUM 3.8 mmol/L (3.5-5.1); SODIUM 142 mmol/L (136-145)
[2020-09-13] MEDS: INSULIN LISPRO 100 UNIT/1 ML 3ML VIAL SQ SCH ×6 (07:30→16:30)
[2020-09-13] MEDS: PANTOPRAZOLE 40 MG 10ML VIAL IV SCH ×2 (08:09→17:04)
[2020-09-13] MEDS: BALSAM PERU/CASTOR OIL 60 GM OINT...G. TP SCH ×3 (08:09→21:00)
[2020-09-13] MEDS: IRON SUCROSE 100 MG in SODIUM CHLORIDE 0.9% 100 ML 100 ML IV SCH (08:09)
[2020-09-13] MEDS: RIFAXIMIN 550 MG TABLET PO SCH ×2 (08:10→17:04)
[2020-09-13] MEDS ORDERED: GLIMEPIRIDE4 MG PO (12:25)
[2020-09-13] MEDS ORDERED: AMITRIPTYLINE H25 MG PO (12:25)
[2020-09-13] MEDS ORDERED: METFORMIN HCL500 MG PO (12:25)
[2020-09-13] MEDS ORDERED: CYCLOBENZAPRINE10 MG PO (12:25)
[2020-09-13] MEDS ORDERED: FAMOTIDINE20 MG PO (12:25)
[2020-09-13] MEDS ORDERED: FEROSUL325 MG PO (12:25)
[2020-09-13] MEDS ORDERED: NEXIUM40 MG PO (12:25)
[2020-09-13] MEDS ORDERED: NEURONTIN300 MG PO (12:25)
[2020-09-13] MEDS: INSULIN GLARGINE 100 UNITS/ML VIAL SQ SCH (20:28)
[2020-09-14] VITALS: BP 108/66
[2020-09-14 04:00] VITALS: BP 105/66
[2020-09-14] MEDS: SUCRALFATE 1 GM/10 ML SUSP NG SCH ×4 (06:00→17:14)
[2020-09-14] MEDS: METRONIDAZOLE 500 MG TAB PO SCH ×4 (06:00→17:14)
[2020-09-14] MEDS ORDERED: SUCRALFATE1 G/10 ML NG (06:08)
[2020-09-14] MEDS ORDERED: XIFAXAN550 MG PO (06:08)
[2020-09-14] MEDS ORDERED: PANTOPRAZOLE SO40 MG PO (06:08)
[2020-09-14] MEDS ORDERED: FLAGYL500 MG PO (06:08)
[2020-09-14] MEDS ORDERED: FUROSEMIDE20 MG PO (06:29)
[2020-09-14] MEDS ORDERED: ALDACTONE25 MG PO (06:29)
[2020-09-14 07:00] LABS: BASOPHILS % 0.4 % (0.0-1.0); EOSINOPHILS # (AUTO) 0.1 (0.0-0.4); EOSINOPHILS % 0.9 % (0.0-6.0); HEMATOCRIT 25.4 % (34.2-44.1); HEMOGLOBIN 8.4 g/dL (12.0-16.0); LYMPHOCYTES # (AUTO) 1.6 (1.0-3.2); LYMPHOCYTES % 23.3 % (18.0-39.1); MEAN CORPUSCULAR HEMOGLOBIN 31.6 pg (28-32); MEAN CORPUSCULAR HGB CONC 33.1 g/dL (31-35); MEAN CORPUSCULAR VOLUME 95.5 fL (81-99); MONOCYTES # (AUTO) 0.5 (0.2-0.8); MONOCYTES % 7.2 % (4.4-11.3); NEUTROPHILS # (AUTO) 4.7 (2.1-6.9); NEUTROPHILS % 67.9 % (38.7-80.0); PLATELET COUNT 67 x10e3/uL (140-360); RED BLOOD COUNT 2.66 x10e6/uL (3.6-5.1); RED CELL DISTRIBUTION WIDTH 19.9 % (11.7-14.4)
[2020-09-14] MEDS: INSULIN LISPRO 100 UNIT/1 ML 3ML VIAL SQ SCH ×6 (07:30→16:30)
[2020-09-14 07:38] LABS: ALANINE AMINOTRANSFERASE 27 IU/L (0-55); ALBUMIN 1.7 g/dL (3.5-5.0); ALBUMIN/GLOBULIN RATIO 0.5 (0.8-2.0); ALKALINE PHOSPHATASE 174 IU/L (40-150); ANION GAP 10.7 mmol/L (8-16); BLOOD UREA NITROGEN 8 mg/dL (7-26); BUN/CREATININE RATIO 17 (6-25); CALCIUM 7.2 mg/dL (8.4-10.2); CARBON DIOXIDE 28 mmol/L (22-29); CHLORIDE 105 mmol/L (98-107); CREATININE, SERUM 0.46 mg/dL (0.57-1.11); EST GLOMERULAR FILTRATION RATE > 60 ML/MIN (60-); GLUCOSE 142 mg/dL (74-118); POTASSIUM 3.7 mmol/L (3.5-5.1); SODIUM 140 mmol/L (136-145)
[2020-09-14 07:49] VITALS: BP 87/51
[2020-09-14 08:00] VITALS: BP 113/69
[2020-09-14] MEDS: PANTOPRAZOLE 40 MG 10ML VIAL IV SCH ×2 (08:28→16:49)
[2020-09-14] MEDS: RIFAXIMIN 550 MG TABLET PO SCH ×2 (08:28→16:49)
[2020-09-14] MEDS: BALSAM PERU/CASTOR OIL 60 GM OINT...G. TP SCH ×2 (08:30)
[2020-09-14] MEDS ORDERED: SPIRONOLACTONE 25 MG TAB PO SCH (09:00)
[2020-09-14] MEDS ORDERED: FUROSEMIDE 20 MG TAB PO SCH (09:00)
[2020-09-14] MEDS: IRON SUCROSE 100 MG in SODIUM CHLORIDE 0.9% 100 ML 100 ML IV SCH (09:50)
[2020-09-14 12:10] VITALS: BP 110/68
[2020-09-14 16:00] VITALS: BP 128/76
== END 2020-09-14 18:22 | disposition home or self-care (01) | DRG 871 ==
LOC: ER 12:32 → ERHOLD 18:15 → ICU 23:55 → MED/SURG2 09-08 21:10
PROVIDERS: ADMIT Internal Medicine; ATTEND Internal Medicine
PROC: 30233R1 Transfusion of Nonautologous Platelets into Peripheral Vein, Percutaneous Approach (ICD-10-PCS; 2020-09-02)
PROC: 5A1945Z Respiratory Ventilation, 24-96 Consecutive Hours (ICD-10-PCS; principal; 2020-09-03)
PROC: 0BH18EZ Insertion of Endotracheal Airway into Trachea, Via Natural or Artificial Opening Endoscopic (ICD-10-PCS; 2020-09-03)
PROC: 30233N1 Transfusion of Nonautologous Red Blood Cells into Peripheral Vein, Percutaneous Approach (ICD-10-PCS; 2020-09-04)
DX: A41.9 Sepsis, unspecified organism (principal); E11.10 Type 2 diabetes mellitus with ketoacidosis without coma; J96.01 Acute respiratory failure with hypoxia; R65.21 Severe sepsis with septic shock; I21.4 Non-ST elevation (NSTEMI) myocardial infarction; N17.9 Acute kidney failure, unspecified; K51.00 Ulcerative (chronic) pancolitis without complications; A04.72 Enterocolitis due to Clostridium difficile, not specified as recurrent; D62 Acute posthemorrhagic anemia; D69.6 Thrombocytopenia, unspecified; K21.9 Gastro-esophageal reflux disease without esophagitis; K72.90 Hepatic failure, unspecified without coma; K70.30 Alcoholic cirrhosis of liver without ascites; F10.21 Alcohol dependence, in remission; E87.6 Hypokalemia; E83.51 Hypocalcemia; Z74.09 Other reduced mobility; L89.322 Pressure ulcer of left buttock, stage 2; L89.312 Pressure ulcer of right buttock, stage 2; L89.611 Pressure ulcer of right heel, stage 1
CPT/HCPCS: 31500; 36415; 36600; 51700; 70450; 71045; 71250; 74018; 74177; 76705; 80048; 80053; 81001; 82140; 82150; 82270; 82550; 82553; 82607; 82728; 82746; 82805; 82948; 83036; 83540; 83605; 83690; 83735; 83880; 84100; 84439; 84443; 84466; 84478; 84484; 85025; 85045; 85610; 85730; 86039; 86850; 86900; 86920; 87040; 87086; 87493; 93005; 93306; 93970; 94002; 94003; 97139; 99251; 99284; J0330; J0610; J0692; J1756; J1815; J1817; J1940; J2250; J2270; J2405; J2543; J3370; J3475; J3480; J7030; J7040; J7050; J7799; P9016; P9034; Q9967; U0002

== ENCOUNTER → 2020-10-24 | Outpatient (CLI) | payer BC ==
[~2020-10-24] MED LIST: ALDACTONE25 MG PO; AMITRIPTYLINE H25 MG PO; CYCLOBENZAPRINE10 MG PO; FAMOTIDINE20 MG PO; FEROSUL325 MG PO; FLAGYL500 MG PO; FUROSEMIDE20 MG PO; GLIMEPIRIDE4 MG PO; METFORMIN HCL500 MG PO; NEURONTIN300 MG PO; NEXIUM40 MG PO; PANTOPRAZOLE SO40 MG PO; SUCRALFATE1 G/10 ML NG; XIFAXAN550 MG PO
== END ==
LOC: WCC 14:19
PROVIDERS: ATTEND Internal Medicine Infectious Disease
DX: L89.153 Pressure ulcer of sacral region, stage 3 (principal); L89.612 Pressure ulcer of right heel, stage 2; E11.628 Type 2 diabetes mellitus with other skin complications; K74.5 Biliary cirrhosis, unspecified; M79.7 Fibromyalgia; D50.9 Iron deficiency anemia, unspecified; E78.2 Mixed hyperlipidemia; G99.0 Autonomic neuropathy in diseases classified elsewhere; Z74.01 Bed confinement status

== ENCOUNTER → 2020-10-31 | Outpatient (CLI) | payer BC | LOC: WCC 14:41 | PROVIDERS: ATTEND Internal Medicine Infectious Disease | DX: L89.153 Pressure ulcer of sacral region, stage 3 (principal); L89.612 Pressure ulcer of right heel, stage 2; E11.628 Type 2 diabetes mellitus with other skin complications; K74.5 Biliary cirrhosis, unspecified; G99.0 Autonomic neuropathy in diseases classified elsewhere; M79.7 Fibromyalgia; D50.9 Iron deficiency anemia, unspecified; E78.2 Mixed hyperlipidemia; Z74.01 Bed confinement status ==

== ENCOUNTER → 2020-11-07 | Outpatient (CLI) | payer BC | LOC: WCC 16:12 | PROVIDERS: ATTEND Internal Medicine Infectious Disease | DX: L89.153 Pressure ulcer of sacral region, stage 3 (principal); L89.612 Pressure ulcer of right heel, stage 2; E11.628 Type 2 diabetes mellitus with other skin complications; K74.5 Biliary cirrhosis, unspecified; G99.0 Autonomic neuropathy in diseases classified elsewhere; E78.2 Mixed hyperlipidemia; M79.7 Fibromyalgia; D50.9 Iron deficiency anemia, unspecified; Z74.01 Bed confinement status ==

== ENCOUNTER → 2020-12-05 | Outpatient (CLI) | payer BC | LOC: WCC 13:58 | PROVIDERS: ATTEND Internal Medicine Infectious Disease | DX: L89.153 Pressure ulcer of sacral region, stage 3 (principal); L89.612 Pressure ulcer of right heel, stage 2; E11.628 Type 2 diabetes mellitus with other skin complications; G99.0 Autonomic neuropathy in diseases classified elsewhere; K74.5 Biliary cirrhosis, unspecified; E78.2 Mixed hyperlipidemia; M79.7 Fibromyalgia; D50.9 Iron deficiency anemia, unspecified; Z74.01 Bed confinement status ==

== ENCOUNTER → 2020-12-19 | Outpatient (CLI) | payer BC | LOC: WCC 09:14 | PROVIDERS: ATTEND Internal Medicine Infectious Disease | DX: L89.153 Pressure ulcer of sacral region, stage 3 (principal); L89.612 Pressure ulcer of right heel, stage 2; E11.628 Type 2 diabetes mellitus with other skin complications; K74.5 Biliary cirrhosis, unspecified; G99.0 Autonomic neuropathy in diseases classified elsewhere; D50.9 Iron deficiency anemia, unspecified; E78.2 Mixed hyperlipidemia; M79.7 Fibromyalgia; Z74.01 Bed confinement status ==

== ENCOUNTER → 2021-01-02 | Outpatient (CLI) | payer BC | LOC: WCC 10:04 | PROVIDERS: ATTEND Internal Medicine Infectious Disease | DX: L89.153 Pressure ulcer of sacral region, stage 3 (principal); L89.612 Pressure ulcer of right heel, stage 2; E11.628 Type 2 diabetes mellitus with other skin complications; E78.2 Mixed hyperlipidemia; G99.0 Autonomic neuropathy in diseases classified elsewhere; D50.9 Iron deficiency anemia, unspecified; K74.5 Biliary cirrhosis, unspecified; M79.7 Fibromyalgia; Z74.01 Bed confinement status ==

== ENCOUNTER → 2021-01-23 | Outpatient (CLI) | payer BC | LOC: WCC 10:08 | PROVIDERS: ATTEND Internal Medicine Infectious Disease | DX: L89.153 Pressure ulcer of sacral region, stage 3 (principal); L89.612 Pressure ulcer of right heel, stage 2; E11.628 Type 2 diabetes mellitus with other skin complications; K74.5 Biliary cirrhosis, unspecified; G99.0 Autonomic neuropathy in diseases classified elsewhere; D50.9 Iron deficiency anemia, unspecified; E78.2 Mixed hyperlipidemia; M79.7 Fibromyalgia; Z74.01 Bed confinement status ==

== ENCOUNTER → 2021-04-07 | Outpatient (CLI) | payer BC | LOC: US 08:25 | PROVIDERS: ATTEND Internal Medicine Gastroenterology | DX: K70.30 Alcoholic cirrhosis of liver without ascites (principal) | CPT/HCPCS: 76705 ==

== ENCOUNTER → 2022-06-15 | Outpatient (CLI) | payer MEDICARE | LOC: US 08:07 | PROVIDERS: ATTEND Internal Medicine Gastroenterology | DX: K70.30 Alcoholic cirrhosis of liver without ascites (principal) | CPT/HCPCS: 76700 ==

== ENCOUNTER → 2022-08-27 | Day surgery (SDC) | payer MEDICARE ==
[2022-08-24 08:15] LABS: BASOPHILS % 0.4 % (0.0-1.0); EOSINOPHILS # (AUTO) 0.1 (0.0-0.4); EOSINOPHILS % 2.8 % (0.0-6.0); HEMATOCRIT 36.7 % (34.2-44.1); HEMOGLOBIN 11.4 g/dL (12.0-16.0); LYMPHOCYTES # (AUTO) 0.7 (1.0-3.2); LYMPHOCYTES % 28.2 % (18.0-39.1); MEAN CORPUSCULAR HGB CONC 31.1 g/dL (31-35); MEAN CORPUSCULAR VOLUME 103.1 fL (81-99); MONOCYTES # (AUTO) 0.2 (0.2-0.8); MONOCYTES % 9.1 % (4.4-11.3); NEUTROPHILS # (AUTO) 1.5 (2.1-6.9); NEUTROPHILS % 59.5 % (38.7-80.0); PLATELET COUNT 47 x10e3/uL (140-360); RED BLOOD COUNT 3.56 x10e6/uL (3.6-5.1); RED CELL DISTRIBUTION WIDTH 16.2 % (11.7-14.4)
[2022-08-24 08:30] LABS: INR 1.15; PROTHROMBIN TIME 14.9 seconds (11.9-14.5)
[2022-08-24 08:31] LABS: PARTIAL THROMBOPLASTIN TIME 33.2 seconds (23.8-35.5)
[2022-08-24 08:38] LABS: ALBUMIN 3.5 g/dL (3.5-5.0); ALBUMIN/GLOBULIN RATIO 0.9 (0.8-2.0); ANION GAP 16.1 mmol/L (8-16); CALCIUM 8.9 mg/dL (8.4-10.2); CREATININE, SERUM 0.72 mg/dL (0.57-1.11); POTASSIUM 4.1 mmol/L (3.5-5.1)
[~2022-08-27] MED LIST changes: +GLIPIZIDE5 MG PO; +HEMOCYTE PLUS1 EACH PO; +LIDOCAINE HCL 2% LOCAL INJ 5 ML SDV VIAL INJ ONE; +POVIDONE IODINE 0.05% 0.05 % ML PO ONE; +PROPRANOLOL HCL40 MG PO
[2022-08-27 11:25] VITALS: BP 112/60
== END | disposition home or self-care (01) ==
LOC: OR 07:47
PROVIDERS: ATTEND Internal Medicine Gastroenterology
DX: K74.60 Unspecified cirrhosis of liver (principal); I85.10 Secondary esophageal varices without bleeding; K76.6 Portal hypertension; K31.89 Other diseases of stomach and duodenum; Z71.3 Dietary counseling and surveillance; D64.89 Other specified anemias; E11.9 Type 2 diabetes mellitus without complications; M06.9 Rheumatoid arthritis, unspecified; Z01.812 Encounter for preprocedural laboratory examination; Z79.84 Long term (current) use of oral hypoglycemic drugs; Z79.899 Other long term (current) drug therapy; Z68.30 Body mass index [BMI] 30.0-30.9, adult
CPT/HCPCS: 36415 ×2; 43244; 80053; 82948; 85025; 85610; 85730; C9113; J2001; 43239; 43255

== ENCOUNTER 2022-09-15 03:17 | Inpatient (IN) | payer MEDICARE ==
[~2022-09-15] VITALS: Ht 154.9 cm; Wt 57.2 kg
[~2022-09-15 03:17] MED LIST changes: -LIDOCAINE HCL 2% LOCAL INJ 5 ML SDV VIAL INJ ONE; -POVIDONE IODINE 0.05% 0.05 % ML PO ONE
[2022-09-15] MEDS ORDERED: SODIUM CHLORIDE 0.9% 1000ML 1,000 ML IV STA ×2 (03:33→03:40)
[2022-09-15] MEDS ORDERED: Morphine 4mg INJECTION 4 MG/ML INJ IV PRN (03:45)
[2022-09-15 03:53] LABS: BASOPHILS % 0.2 % (0.0-1.0); EOSINOPHILS # (AUTO) 0.1 (0.0-0.4); EOSINOPHILS % 0.7 % (0.0-6.0); HEMATOCRIT 36.9 % (34.2-44.1); HEMOGLOBIN 11.4 g/dL (12.0-16.0); LYMPHOCYTES # (AUTO) 0.3 (1.0-3.2); LYMPHOCYTES % 3.7 % (18.0-39.1); MEAN CORPUSCULAR HEMOGLOBIN 32.3 pg (28-32); MEAN CORPUSCULAR HGB CONC 30.9 g/dL (31-35); MEAN CORPUSCULAR VOLUME 104.5 fL (81-99); MONOCYTES # (AUTO) 0.3 (0.2-0.8); MONOCYTES % 3.7 % (4.4-11.3); NEUTROPHILS # (AUTO) 8.3 (2.1-6.9); NEUTROPHILS % 91.4 % (38.7-80.0); PLATELET COUNT 64 x10e3/uL (140-360); RED BLOOD COUNT 3.53 x10e6/uL (3.6-5.1); RED CELL DISTRIBUTION WIDTH 15.5 % (11.7-14.4)
[2022-09-15 04:01] LABS: INR 1.14; PROTHROMBIN TIME 14.8 seconds (11.9-14.5)
[2022-09-15] MEDS: ONDANSETRON HCL INJ 2MG/ML 2ML 2 MG/ML VIAL IV PRN ×2 (04:01→09:41)
[2022-09-15 04:02] LABS: PARTIAL THROMBOPLASTIN TIME 31.7 seconds (23.8-35.5)
[2022-09-15 04:09] LABS: CREATINE KINASE 96 IU/L (29-168)
[2022-09-15 04:13] LABS: ALBUMIN 3.4 g/dL (3.5-5.0); ALBUMIN/GLOBULIN RATIO 0.9 (0.8-2.0); ANION GAP 17.3 mmol/L (8-16); CALCIUM 8.9 mg/dL (8.4-10.2); CREATININE, SERUM 0.8 mg/dL (0.57-1.11); POTASSIUM 4.3 mmol/L (3.5-5.1)
[2022-09-15] MEDS: SODIUM CHLORIDE 0.9% 1000ML 1,000 ML IV SCH ×3 (06:55→20:44)
[2022-09-15] MEDS ORDERED: OCTREOTIDE ACETATE 0.05 MG/ML AMP IV ONE (09:45)
[2022-09-15] MEDS ORDERED: MIDODRINE HCL 5 MG TABLET PO STA (10:14)
[2022-09-15] MEDS ORDERED: MIDODRINE HCL 5 MG TABLET ONE (10:33)
[2022-09-15 10:35] LABS: BASOPHILS % 0.2 % (0.0-1.0); EOSINOPHILS % 0.4 % (0.0-6.0); HEMATOCRIT 29.8 % (34.2-44.1); HEMOGLOBIN 9.2 g/dL (12.0-16.0); LYMPHOCYTES # (AUTO) 0.3 (1.0-3.2); LYMPHOCYTES % 5.2 % (18.0-39.1); MEAN CORPUSCULAR HEMOGLOBIN 32.1 pg (28-32); MEAN CORPUSCULAR HGB CONC 30.9 g/dL (31-35); MEAN CORPUSCULAR VOLUME 103.8 fL (81-99); MONOCYTES # (AUTO) 0.2 (0.2-0.8); MONOCYTES % 3.8 % (4.4-11.3); NEUTROPHILS # (AUTO) 4.7 (2.1-6.9); PLATELET COUNT 41 x10e3/uL (140-360); RED BLOOD COUNT 2.87 x10e6/uL (3.6-5.1); RED CELL DISTRIBUTION WIDTH 15.6 % (11.7-14.4)
[2022-09-15] MEDS: OCTREOTIDE ACETATE 500 MCG in SODIUM CHLORIDE 0.9% 250ML 249 ML IV SCH ×2 (10:39→20:44)
[2022-09-15 11:07] LABS: CREATINE KINASE 75 IU/L (29-168)
[2022-09-15 12:10] VITALS: BP 93/61
[2022-09-15 12:12] VITALS: BP 93/61
[2022-09-15] MEDS ORDERED: METOCLOPRAMIDE HCL 10 MG/2ML VIAL ONE (12:24)
[2022-09-15] MEDS ORDERED: LIDOCAINE HCL 2% LOCAL INJ 5 ML SDV VIAL INJ ONE (12:24)
[2022-09-15] MEDS ORDERED: DEXMEDETOMIDINE HCL 200 MCG/2 ML VIAL ONE (12:24)
[2022-09-15] MEDS ORDERED: PROPOFOL IV EMULSION 10 MG/ML 20 ML VIAL ONE (12:24)
[2022-09-15] MEDS ORDERED: METOPROLOL TARTRATE INJ 1 MG/ML VIAL IV PRN (12:30)
[2022-09-15] MEDS ORDERED: ACETAMINOPHEN 325 MG TAB PO PRN (12:30)
[2022-09-15 13:01] VITALS: BP 93/61
[2022-09-15] MEDS ORDERED: AMITRIPTYLINE HCL 25 MG TAB PO PRN (13:15)
[2022-09-15] MEDS ORDERED: CYCLOBENZAPRINE HCL 10 MG TAB PO PRN (13:15)
[2022-09-15] MEDS ORDERED: SODIUM CHLORIDE 0.9% 250ML 250 ML ONE (13:57)
[2022-09-15] MEDS: SODIUM FERRIC GLUCONATE COMPLX 125 MG in SODIUM CHLORIDE 0.9% 100 ML IV SCH (14:09)
[2022-09-15] MEDS: GABAPENTIN 300 MG CAP PO SCH ×2 (14:14→20:43)
[2022-09-15 14:21] LABS: HEMATOCRIT 29.5 % (34.2-44.1)
[2022-09-15] MEDS: PROPRANOLOL HCL 40 MG TAB PO SCH (16:49)
[2022-09-15 17:36] VITALS: BP 80/49
[2022-09-15] MEDS: SUCRALFATE 1 GM/10 ML SUSP NG SCH (18:00)
[2022-09-15 18:36] LABS: HEMATOCRIT 27.7 % (34.2-44.1); HEMOGLOBIN 8.4 g/dL (12.0-16.0)
[2022-09-15 19:04] LABS: CREATINE KINASE MB 0.5 ng/mL (0-5.0)
[2022-09-15 20:00] VITALS: BP 108/62
[2022-09-16] VITALS (15 sets, daily range): BP systolic 80–168; BP diastolic 47–138
[2022-09-16 00:48] LABS: % IRON SATURATION 85 % (15-50); IRON 333 ug/dL (50-170); TOTAL IRON BINDING CAPACITY 393 ug/dL (261-478); TRANSFERRIN 281 mg/dL (180-382)
[2022-09-16] MEDS: MIDODRINE 2.5 MG TAB PO SCH ×4 (02:02→17:35)
[2022-09-16] MEDS: PROPRANOLOL HCL 40 MG TAB PO SCH ×5 (02:02→17:00)
[2022-09-16] MEDS: OCTREOTIDE ACETATE 500 MCG in SODIUM CHLORIDE 0.9% 250ML 249 ML IV SCH ×3 (04:55→23:46)
[2022-09-16] MEDS: SODIUM CHLORIDE 0.9% 1000ML 1,000 ML IV SCH ×3 (04:55→19:45)
[2022-09-16] MEDS: SUCRALFATE 1 GM/10 ML SUSP NG SCH ×4 (06:00→17:31)
[2022-09-16 06:04] LABS: BASOPHILS % 0.5 % (0.0-1.0); EOSINOPHILS # (AUTO) 0.1 (0.0-0.4); EOSINOPHILS % 2.4 % (0.0-6.0); HEMATOCRIT 26.7 % (34.2-44.1); LYMPHOCYTES # (AUTO) 0.6 (1.0-3.2); LYMPHOCYTES % 26.3 % (18.0-39.1); MEAN CORPUSCULAR HEMOGLOBIN 32.4 pg (28-32); MONOCYTES # (AUTO) 0.2 (0.2-0.8); MONOCYTES % 8.1 % (4.4-11.3); NEUTROPHILS # (AUTO) 1.3 (2.1-6.9); NEUTROPHILS % 62.7 % (38.7-80.0); PLATELET COUNT 30 x10e3/uL (140-360); RED BLOOD COUNT 2.47 x10e6/uL (3.6-5.1); RED CELL DISTRIBUTION WIDTH 15.9 % (11.7-14.4)
[2022-09-16 06:07] LABS: MEAN CORPUSCULAR VOLUME 108.1 fL (81-99)
[2022-09-16 06:43] LABS: ALBUMIN 2.7 g/dL (3.5-5.0); ANION GAP 11.5 mmol/L (8-16); CREATININE, SERUM 0.56 mg/dL (0.57-1.11); POTASSIUM 3.5 mmol/L (3.5-5.1)
[2022-09-16 07:16] LABS: CHOL/HDL RATIO 3.1 (3.0-3.6); MAGNESIUM 1.5 MG/DL (1.3-2.1); PHOSPHORUS 3.3 MG/DL (2.3-4.7)
[2022-09-16 07:39] LABS: THYROID STIMULATING HORMONE 0.295 uIU/mL (0.350-4.940)
[2022-09-16] MEDS: GABAPENTIN 300 MG CAP PO SCH ×3 (09:00→21:00)
[2022-09-16] MEDS: FUROSEMIDE 20 MG TAB PO SCH (09:00)
[2022-09-16] MEDS ORDERED: DESMOPRESSIN ACETATE 4 MCG/ML VIAL IV ONE (09:00)
[2022-09-16 10:22] LABS: HEMOGLOBIN 8.1 g/dL (12.0-16.0)
[2022-09-16] MEDS ORDERED: SODIUM CHLORIDE 0.9% 250ML 250 ML ONE (12:20)
[2022-09-16] MEDS ORDERED: MAGNESIUM SULFATE 2GM/50ML 50 ML IV ONE ×2 (13:00→19:24)
[2022-09-16] MEDS ORDERED: EPINEPHRINE HCL 1:1000 1ML 1 MG/ML AMP ONE (15:21)
[2022-09-16 15:40] LABS: BASOPHILS % 0.3 % (0.0-1.0); EOSINOPHILS # (AUTO) 0.1 (0.0-0.4); EOSINOPHILS % 2.4 % (0.0-6.0); HEMOGLOBIN 7.4 g/dL (12.0-16.0); LYMPHOCYTES % 31.5 % (18.0-39.1); MEAN CORPUSCULAR HGB CONC 29.6 g/dL (31-35); MEAN CORPUSCULAR VOLUME 108.2 fL (81-99); MONOCYTES # (AUTO) 0.4 (0.2-0.8); MONOCYTES % 10.7 % (4.4-11.3); NEUTROPHILS # (AUTO) 1.8 (2.1-6.9); NEUTROPHILS % 53.9 % (38.7-80.0); RED BLOOD COUNT 2.31 x10e6/uL (3.6-5.1); RED CELL DISTRIBUTION WIDTH 15.9 % (11.7-14.4)
[2022-09-16 15:47] LABS: PLATELET COUNT 44 x10e3/uL (140-360)
[2022-09-16] MEDS ORDERED: CEFTRIAXONE 1 GM VIAL ONE (15:50)
[2022-09-16] MEDS ORDERED: SODIUM CHLORIDE 0.9% 1000ML 1,000 ML ONE (16:00)
[2022-09-16 18:04] LABS: HEMATOCRIT 24.9 % (34.2-44.1); HEMOGLOBIN 7.3 g/dL (12.0-16.0)
[2022-09-16] MEDS: METOCLOPRAMIDE HCL 10 MG/2ML VIAL IV SCH (18:04)
[2022-09-16] MEDS: SODIUM FERRIC GLUCONATE COMPLX 125 MG in SODIUM CHLORIDE 0.9% 100 ML IV SCH (19:14)
[2022-09-17] VITALS (20 sets, daily range): BP systolic 84–136; BP diastolic 42–109
[2022-09-17] MEDS: METOCLOPRAMIDE HCL 10 MG/2ML VIAL IV SCH ×4 (00:46→16:46)
[2022-09-17] MEDS: SUCRALFATE 1 GM/10 ML SUSP NG SCH ×4 (00:46→16:45)
[2022-09-17] MEDS: SODIUM CHLORIDE 0.9% 1000ML 1,000 ML IV SCH (03:36)
[2022-09-17] MEDS: OCTREOTIDE ACETATE 500 MCG in SODIUM CHLORIDE 0.9% 250ML 249 ML IV SCH ×2 (06:12→16:01)
[2022-09-17 07:15] LABS: POTASSIUM 3.4 mmol/L (3.5-5.1)
[2022-09-17 07:16] LABS: ALBUMIN 2.6 g/dL (3.5-5.0); ANION GAP 10.4 mmol/L (8-16); CALCIUM 7.2 mg/dL (8.4-10.2); CREATININE, SERUM 0.49 mg/dL (0.57-1.11)
[2022-09-17] MEDS: GABAPENTIN 300 MG CAP PO SCH ×3 (08:13→21:21)
[2022-09-17] MEDS: FUROSEMIDE 20 MG TAB PO SCH (08:13)
[2022-09-17] MEDS: MIDODRINE 2.5 MG TAB PO SCH ×3 (08:13→14:52)
[2022-09-17] MEDS: PROPRANOLOL HCL 40 MG TAB PO SCH ×3 (08:14→18:00)
[2022-09-17] MEDS: POTASSIUM CHLORIDE 20MEQ/100ML 100 ML IV SCH ×2 (08:16→10:43)
[2022-09-17] MEDS: BALSAM PERU/CASTOR OIL 60 GM OINT...G. TP SCH (08:16)
[2022-09-17 09:03] LABS: ALBUMIN 2.6 g/dL (3.5-5.0); ALBUMIN/GLOBULIN RATIO 0.9 (0.8-2.0); ANION GAP 10.3 mmol/L (8-16); CALCIUM 7.5 mg/dL (8.4-10.2); CREATININE, SERUM 0.57 mg/dL (0.57-1.11); POTASSIUM 3.3 mmol/L (3.5-5.1)
[2022-09-17] MEDS: SODIUM FERRIC GLUCONATE COMPLX 125 MG in SODIUM CHLORIDE 0.9% 100 ML IV SCH (14:54)
[2022-09-18] VITALS (8 sets, daily range): BP systolic 91–123; BP diastolic 50–73
[2022-09-18] MEDS: OCTREOTIDE ACETATE 500 MCG in SODIUM CHLORIDE 0.9% 250ML 249 ML IV SCH ×2 (02:46→16:08)
[2022-09-18] MEDS: METOCLOPRAMIDE HCL 10 MG/2ML VIAL IV SCH ×5 (04:53→23:54)
[2022-09-18] MEDS: SUCRALFATE 1 GM/10 ML SUSP NG SCH ×5 (04:53→23:54)
[2022-09-18 05:25] LABS: BASOPHILS % 0.3 % (0.0-1.0); EOSINOPHILS # (AUTO) 0.1 (0.0-0.4); EOSINOPHILS % 1.9 % (0.0-6.0); HEMATOCRIT 27.1 % (34.2-44.1); HEMOGLOBIN 8.4 g/dL (12.0-16.0); LYMPHOCYTES # (AUTO) 1.2 (1.0-3.2); LYMPHOCYTES % 19.8 % (18.0-39.1); MEAN CORPUSCULAR HEMOGLOBIN 32.4 pg (28-32); MEAN CORPUSCULAR VOLUME 104.6 fL (81-99); MONOCYTES # (AUTO) 0.5 (0.2-0.8); NEUTROPHILS % 68.6 % (38.7-80.0); PLATELET COUNT 53 x10e3/uL (140-360); RED BLOOD COUNT 2.59 x10e6/uL (3.6-5.1); RED CELL DISTRIBUTION WIDTH 15.1 % (11.7-14.4)
[2022-09-18 05:42] LABS: ANION GAP 11.6 mmol/L (8-16); CALCIUM 7.9 mg/dL (8.4-10.2); CREATININE, SERUM 0.58 mg/dL (0.57-1.11); POTASSIUM 3.6 mmol/L (3.5-5.1)
[2022-09-18] MEDS: PROPRANOLOL HCL 40 MG TAB PO SCH ×2 (08:31→15:55)
[2022-09-18] MEDS: MIDODRINE 2.5 MG TAB PO SCH ×3 (08:32→15:56)
[2022-09-18] MEDS: FUROSEMIDE 20 MG TAB PO SCH (08:32)
[2022-09-18] MEDS: GABAPENTIN 300 MG CAP PO SCH ×3 (08:32→20:26)
[2022-09-18] MEDS: BALSAM PERU/CASTOR OIL 60 GM OINT...G. TP SCH (15:08)
[2022-09-19] VITALS (7 sets, daily range): BP systolic 95–111; BP diastolic 45–65
[2022-09-19] MEDS: OCTREOTIDE ACETATE 500 MCG in SODIUM CHLORIDE 0.9% 250ML 249 ML IV SCH (05:03)
[2022-09-19] MEDS: SUCRALFATE 1 GM/10 ML SUSP NG SCH ×4 (05:38→22:44)
[2022-09-19] MEDS: METOCLOPRAMIDE HCL 10 MG/2ML VIAL IV SCH ×4 (05:39→22:44)
[2022-09-19 05:49] LABS: BASOPHILS % 0.4 % (0.0-1.0); EOSINOPHILS # (AUTO) 0.1 (0.0-0.4); EOSINOPHILS % 2.2 % (0.0-6.0); HEMATOCRIT 27.2 % (34.2-44.1); HEMOGLOBIN 8.3 g/dL (12.0-16.0); LYMPHOCYTES # (AUTO) 1.6 (1.0-3.2); LYMPHOCYTES % 28.2 % (18.0-39.1); MEAN CORPUSCULAR HEMOGLOBIN 32.3 pg (28-32); MEAN CORPUSCULAR HGB CONC 30.5 g/dL (31-35); MEAN CORPUSCULAR VOLUME 105.8 fL (81-99); MONOCYTES # (AUTO) 0.5 (0.2-0.8); MONOCYTES % 8.3 % (4.4-11.3); NEUTROPHILS # (AUTO) 3.3 (2.1-6.9); NEUTROPHILS % 59.3 % (38.7-80.0); PLATELET COUNT 61 x10e3/uL (140-360); RED BLOOD COUNT 2.57 x10e6/uL (3.6-5.1); RED CELL DISTRIBUTION WIDTH 15.6 % (11.7-14.4)
[2022-09-19 06:21] LABS: ALBUMIN 2.9 g/dL (3.5-5.0); ALBUMIN/GLOBULIN RATIO 0.9 (0.8-2.0); ANION GAP 8.4 mmol/L (8-16); CALCIUM 7.9 mg/dL (8.4-10.2); CREATININE, SERUM 0.59 mg/dL (0.57-1.11); POTASSIUM 3.4 mmol/L (3.5-5.1)
[2022-09-19] MEDS: MIDODRINE 2.5 MG TAB PO SCH ×3 (08:14→16:47)
[2022-09-19] MEDS: PROPRANOLOL HCL 40 MG TAB PO SCH ×2 (08:14→16:48)
[2022-09-19] MEDS: GABAPENTIN 300 MG CAP PO SCH ×3 (08:15→21:12)
[2022-09-19] MEDS: FUROSEMIDE 20 MG TAB PO SCH (08:15)
[2022-09-19] MEDS: BALSAM PERU/CASTOR OIL 60 GM OINT...G. TP SCH (16:49)
[2022-09-20] MEDS: OCTREOTIDE ACETATE 500 MCG in SODIUM CHLORIDE 0.9% 250ML 249 ML IV SCH (00:26)
[2022-09-20 00:31] VITALS: BP 108/54
[2022-09-20 04:00] VITALS: BP 104/44
[2022-09-20] MEDS: SUCRALFATE 1 GM/10 ML SUSP NG SCH (05:49)
[2022-09-20] MEDS: METOCLOPRAMIDE HCL 10 MG/2ML VIAL IV SCH (05:49)
[2022-09-20] MEDS ORDERED: PANTOPRAZOLE SOD 40 MG TABEC PO SCH (07:30)
[2022-09-20 08:05] VITALS: BP 116/69
[2022-09-20 08:06] VITALS: BP 116/69
[2022-09-20] MEDS: FUROSEMIDE 20 MG TAB PO SCH (09:32)
[2022-09-20] MEDS: PROPRANOLOL HCL 40 MG TAB PO SCH (09:32)
[2022-09-20] MEDS: GABAPENTIN 300 MG CAP PO SCH (09:32)
[2022-09-20] MEDS: MIDODRINE 2.5 MG TAB PO SCH (09:32)
[2022-09-20] MEDS ORDERED: SODIUM CHLORIDE 0.9% 250ML 250 ML ONE (09:52)
[2022-09-20] MEDS ORDERED: PROPRANOLOL HCL40 MG PO (11:19)
[2022-09-20] MEDS ORDERED: MIDODRINE HCL2.5 MG PO (11:19)
[2022-09-20] MEDS ORDERED: FUROSEMIDE20 MG PO (11:19)
[2022-09-20] MEDS ORDERED: PROTONIX40 MG/ML PO (11:19)
[2022-09-20] MEDS ORDERED: ALDACTONE50 MG PO (11:57)
[2022-09-20] MEDS ORDERED: METOCLOPRAMIDE HCL 10 MG TAB PO SCH (12:45)
[2022-10-14] MEDS ORDERED: METFORMIN HCL500 MG PO (11:12)
== END 2022-09-20 12:29 | disposition home or self-care (01) | DRG 432 ==
LOC: ER 03:28 → ERHOLD 03:36 → MED/SURG3 11:07 → ICU 09-16 16:28 → MED/SURG 09-17 16:20
PROVIDERS: ADMIT Internal Medicine; ATTEND Internal Medicine
PROC: 06L38CZ Occlusion of Esophageal Vein with Extraluminal Device, Via Natural or Artificial Opening Endoscopic (ICD-10-PCS; 2022-09-16)
PROC: 30233R1 Transfusion of Nonautologous Platelets into Peripheral Vein, Percutaneous Approach (ICD-10-PCS; principal; 2022-09-16 14:43)
DX: K74.60 Unspecified cirrhosis of liver (principal); I85.11 Secondary esophageal varices with bleeding; K85.90 Acute pancreatitis without necrosis or infection, unspecified; R57.1 Hypovolemic shock; D62 Acute posthemorrhagic anemia; K76.6 Portal hypertension; M79.7 Fibromyalgia; R00.0 Tachycardia, unspecified; I25.2 Old myocardial infarction; K21.9 Gastro-esophageal reflux disease without esophagitis; R29.6 Repeated falls; H54.40 Blindness, one eye, unspecified eye; D69.6 Thrombocytopenia, unspecified; K31.89 Other diseases of stomach and duodenum; E11.65 Type 2 diabetes mellitus with hyperglycemia; Z79.84 Long term (current) use of oral hypoglycemic drugs; Z90.49 Acquired absence of other specified parts of digestive tract; Z20.822 Contact with and (suspected) exposure to COVID-19
CPT/HCPCS: 36415; 36569; 43255; 71045; 80048; 80053; 80061; 82140; 82550; 82553; 82607; 82746; 82948; 83036; 83540; 83690; 83735; 84100; 84443; 84466; 84484; 85014; 85018; 85025; 85045; 85610; 85730; 86850; 86900; 93005; 94799; 99252; 99284; J0171; J0696; J2001; J2353; J2354; J2405; J2765; J2916; J3430; J3475; J3480; J7030; J7050; P9034

== ENCOUNTER 2022-09-30 18:31 | Inpatient (IN) | payer MEDICARE, OTHER ==
[~2022-09-30] VITALS: Ht 154.9 cm; Wt 68.9 kg
[~2022-09-30 18:31] MED LIST changes: +ALDACTONE50 MG PO; +MIDODRINE HCL2.5 MG PO; +PROTONIX40 MG/ML PO
[2022-09-30] MEDS ORDERED: SODIUM CHLORIDE FLUSH 10 ML SYR IV PRN (19:30)
[2022-09-30] MEDS ORDERED: SODIUM CHLORIDE 0.9% 1000ML 1,000 ML IV SCH (19:45)
[2022-09-30 20:07] LABS: BASOPHILS % 0.4 % (0.0-1.0); EOSINOPHILS # (AUTO) 0.1 (0.0-0.4); EOSINOPHILS % 1.4 % (0.0-6.0); HEMATOCRIT 27.9 % (34.2-44.1); HEMOGLOBIN 9.3 g/dL (12.0-16.0); LYMPHOCYTES # (AUTO) 0.9 (1.0-3.2); LYMPHOCYTES % 11.3 % (18.0-39.1); MEAN CORPUSCULAR HEMOGLOBIN 33.6 pg (28-32); MEAN CORPUSCULAR HGB CONC 33.3 g/dL (31-35); MEAN CORPUSCULAR VOLUME 100.7 fL (81-99); MONOCYTES # (AUTO) 0.6 (0.2-0.8); MONOCYTES % 7.6 % (4.4-11.3); PLATELET COUNT 80 x10e3/uL (140-360); RED BLOOD COUNT 2.77 x10e6/uL (3.6-5.1); RED CELL DISTRIBUTION WIDTH 17.1 % (11.7-14.4)
[2022-09-30 20:16] LABS: INR 1.21; PROTHROMBIN TIME 15.5 seconds (11.9-14.5)
[2022-09-30 20:17] LABS: PARTIAL THROMBOPLASTIN TIME 33.6 seconds (23.8-35.5)
[2022-09-30 20:25] LABS: ALANINE AMINOTRANSFERASE 33 IU/L (0-55); ALBUMIN 3.5 g/dL (3.5-5.0); ALBUMIN/GLOBULIN RATIO 0.9 (0.8-2.0); ALKALINE PHOSPHATASE 160 IU/L (40-150); BLOOD UREA NITROGEN 23 mg/dL (7-26); BUN/CREATININE RATIO 27 (6-25); CALCIUM 9.3 mg/dL (8.4-10.2); CARBON DIOXIDE 24 mmol/L (22-29); CHLORIDE 100 mmol/L (98-107); CREATININE, SERUM 0.86 mg/dL (0.57-1.11); GLUCOSE 176 mg/dL (74-118); SODIUM 137 mmol/L (136-145)
[2022-09-30 20:45] LABS: CLARITY,URINE SL CLOUDY (CLEAR); COLOR,URINE AMBER (YELLOW); KETONES,URINE TRACE (NEGATIVE); LEUKOCYTE ESTERASE ,URINE NEGATIVE (NEGATIVE); NITRITE,URINE NEGATIVE (NEGATIVE); PROTEIN,URINE DIPSTICK NEGATIVE (NEGATIVE); URINE UROBILINOGEN 1 mg/dL (0.2 - 1)
[2022-09-30 20:46] LABS: AMPHETAMINES SCREEN,URINE NEGATIVE (NEGATIVE); BENZODIAZEPINES SCREEN,URINE NEGATIVE (NEGATIVE); PHENCYCLIDINE SCREEN,URINE NEGATIVE (NEGATIVE)
[2022-09-30 20:59] LABS: BACTERIA,URINE FEW /HPF; EPITHELIAL CELLS,URINE FEW /LPF
[2022-09-30] MEDS ORDERED: MIDODRINE 2.5 MG TAB PO STA (22:41)
[2022-10-01] MEDS ORDERED: ONDANSETRON HCL INJ 2MG/ML 2ML 2 MG/ML VIAL IV PRN ×2 (00:15→15:45)
[2022-10-01] MEDS ORDERED: DEXTROSE 50% SYRINGE 50 ML IV PRN (00:15)
[2022-10-01] MEDS ORDERED: INSULIN REGULAR, HUMAN 100 UNIT/1 ML SQ ONE (00:30)
[2022-10-01] MEDS: SODIUM CHLORIDE 0.9% 1000ML 1,000 ML IV SCH ×4 (01:28→21:36)
[2022-10-01] MEDS: MIDODRINE 2.5 MG TAB PO SCH ×3 (05:40→16:08)
[2022-10-01] MEDS: INSULIN REGULAR, HUMAN 100 UNIT/1 ML SQ SCH ×4 (08:11→21:38)
[2022-10-01 13:25] VITALS: BP 107/66
[2022-10-01] MEDS ORDERED: Morphine 4mg INJECTION 4 MG/ML INJ IV PRN (15:45)
[2022-10-01] MEDS: HYDROCODONE/APAP 5MG-325MG TAB PO PRN (16:06)
[2022-10-01 16:35] VITALS: BP 106/72
[2022-10-01 20:26] VITALS: BP 109/53
[2022-10-02] VITALS (8 sets, daily range): BP systolic 88–127; BP diastolic 51–70
[2022-10-02 05:43] LABS: BASOPHILS % 0.5 % (0.0-1.0); EOSINOPHILS % 2.2 % (0.0-6.0); HEMATOCRIT 23.2 % (34.2-44.1); HEMOGLOBIN 7.3 g/dL (12.0-16.0); LYMPHOCYTES # (AUTO) 0.6 (1.0-3.2); LYMPHOCYTES % 31.4 % (18.0-39.1); MEAN CORPUSCULAR HEMOGLOBIN 32.7 pg (28-32); MEAN CORPUSCULAR HGB CONC 31.5 g/dL (31-35); MONOCYTES # (AUTO) 0.2 (0.2-0.8); MONOCYTES % 11.4 % (4.4-11.3); RED BLOOD COUNT 2.23 x10e6/uL (3.6-5.1); RED CELL DISTRIBUTION WIDTH 17.3 % (11.7-14.4)
[2022-10-02 06:00] LABS: PLATELET COUNT 44 x10e3/uL (140-360)
[2022-10-02 06:08] LABS: ALBUMIN 2.9 g/dL (3.5-5.0); ALBUMIN/GLOBULIN RATIO 0.9 (0.8-2.0); ANION GAP 9.9 mmol/L (8-16); CALCIUM 8.1 mg/dL (8.4-10.2); CREATININE, SERUM 0.61 mg/dL (0.57-1.11); POTASSIUM 3.9 mmol/L (3.5-5.1)
[2022-10-02] MEDS ORDERED: MIDODRINE 2.5 MG TAB PO SCH (08:00)
[2022-10-02] MEDS: MIDODRINE 2.5 MG TAB PO SCH ×3 (09:22→16:36)
[2022-10-02 09:23] LABS: LYMPHOCYTES % (MANUAL) 29 % (19-48); MONOCYTES % (MANUAL) 7 % (3.4-9.0); NEUTROPHILS % (MANUAL) 64 % (40-74); PLATELET ESTIMATE MARKEDLY DECREASED; PLATELET MORPHOLOGY COMMENT NORMAL; RBC MORPHOLOGY COMMENT NORMAL
[2022-10-02] MEDS: INSULIN REGULAR, HUMAN 100 UNIT/1 ML SQ SCH ×4 (09:24→21:04)
[2022-10-02] MEDS ORDERED: FILGRASTIM 300 MCG/ML VIAL SC ONE (10:00)
[2022-10-02] MEDS: IRON SUCROSE 100 MG in SODIUM CHLORIDE 0.9% 100 ML IV SCH (10:02)
[2022-10-02] MEDS: HYDROCODONE/APAP 5MG-325MG TAB PO PRN (12:40)
[2022-10-02] MEDS: SODIUM CHLORIDE 0.9% 1000ML 1,000 ML IV SCH ×2 (16:30→21:51)
[2022-10-03] VITALS: BP 109/63
[2022-10-03] MEDS: HYDROCODONE/APAP 5MG-325MG TAB PO PRN (00:30)
[2022-10-03 04:00] VITALS: BP 114/67
[2022-10-03] MEDS: INSULIN REGULAR, HUMAN 100 UNIT/1 ML SQ SCH ×3 (08:05→16:29)
[2022-10-03] MEDS: IRON SUCROSE 100 MG in SODIUM CHLORIDE 0.9% 100 ML IV SCH (08:08)
[2022-10-03] MEDS: MIDODRINE 2.5 MG TAB PO SCH ×3 (08:08→16:28)
[2022-10-03 08:25] VITALS: BP 105/63
[2022-10-03 10:12] VITALS: BP 105/63
[2022-10-03 12:30] LABS: BASOPHILS % 0.2 % (0.0-1.0); EOSINOPHILS # (AUTO) 0.1 (0.0-0.4); EOSINOPHILS % 0.9 % (0.0-6.0); HEMATOCRIT 25.7 % (34.2-44.1); HEMOGLOBIN 8.2 g/dL (12.0-16.0); LYMPHOCYTES # (AUTO) 1.1 (1.0-3.2); LYMPHOCYTES % 16.2 % (18.0-39.1); MEAN CORPUSCULAR HEMOGLOBIN 33.2 pg (28-32); MEAN CORPUSCULAR HGB CONC 31.9 g/dL (31-35); MONOCYTES # (AUTO) 0.5 (0.2-0.8); MONOCYTES % 7.1 % (4.4-11.3); NEUTROPHILS # (AUTO) 4.9 (2.1-6.9); RED BLOOD COUNT 2.47 x10e6/uL (3.6-5.1); RED CELL DISTRIBUTION WIDTH 17.2 % (11.7-14.4)
[2022-10-03 12:31] LABS: PLATELET COUNT 47 x10e3/uL (140-360)
[2022-10-03 12:44] LABS: ANION GAP 12.9 mmol/L (8-16); CALCIUM 8.3 mg/dL (8.4-10.2); CREATININE, SERUM 0.63 mg/dL (0.57-1.11); POTASSIUM 3.9 mmol/L (3.5-5.1)
[2022-10-03 14:34] VITALS: BP 113/65
[2022-10-03 17:07] VITALS: BP 116/56
== END 2022-10-03 18:27 | disposition home or self-care (01) | DRG 563 ==
LOC: ER 18:45 → ERHOLD 10-01 00:06 → MED/SURG 10-01 13:26 → OBSVTOIN 10-01 15:00
PROVIDERS: ADMIT Internal Medicine; ATTEND Internal Medicine
DX: S52.611A Displaced fracture of right ulna styloid process, initial encounter for closed fracture (principal); I85.00 Esophageal varices without bleeding; K76.6 Portal hypertension; R42 Dizziness and giddiness; W01.0XXA Fall on same level from slipping, tripping and stumbling without subsequent striking against object, initial encounter; K70.30 Alcoholic cirrhosis of liver without ascites; D69.6 Thrombocytopenia, unspecified; I10 Essential (primary) hypertension; E11.9 Type 2 diabetes mellitus without complications; K76.82 Hepatic encephalopathy; K21.9 Gastro-esophageal reflux disease without esophagitis; M79.7 Fibromyalgia; R74.01 Elevation of levels of liver transaminase levels; D63.8 Anemia in other chronic diseases classified elsewhere; I25.2 Old myocardial infarction; I25.10 Atherosclerotic heart disease of native coronary artery without angina pectoris; K31.9 Disease of stomach and duodenum, unspecified; I95.9 Hypotension, unspecified; D70.9 Neutropenia, unspecified; Z20.822 Contact with and (suspected) exposure to COVID-19; Z90.49 Acquired absence of other specified parts of digestive tract
CPT/HCPCS: 0223U; 36415; 70450; 71045; 80048; 80053; 80307; 81001; 82140; 82728; 82948; 84484; 85025; 85610; 85730; 93005; 94760; 99284; J1442; J1756; J1817; J2270; J7030; J7050

== ENCOUNTER → 2022-10-20 | Day surgery (SDC) | payer MEDICARE ==
[2022-10-15 08:22] LABS: BASOPHILS % 0.5 % (0.0-1.0); EOSINOPHILS # (AUTO) 0.1 (0.0-0.4); EOSINOPHILS % 1.8 % (0.0-6.0); HEMATOCRIT 32.2 % (34.2-44.1); HEMOGLOBIN 10.1 g/dL (12.0-16.0); LYMPHOCYTES # (AUTO) 0.7 (1.0-3.2); LYMPHOCYTES % 18.9 % (18.0-39.1); MEAN CORPUSCULAR HEMOGLOBIN 32.7 pg (28-32); MEAN CORPUSCULAR HGB CONC 31.4 g/dL (31-35); MEAN CORPUSCULAR VOLUME 104.2 fL (81-99); MONOCYTES # (AUTO) 0.3 (0.2-0.8); MONOCYTES % 7.1 % (4.4-11.3); NEUTROPHILS # (AUTO) 2.8 (2.1-6.9); NEUTROPHILS % 71.4 % (38.7-80.0); PLATELET COUNT 66 x10e3/uL (140-360); RED BLOOD COUNT 3.09 x10e6/uL (3.6-5.1); RED CELL DISTRIBUTION WIDTH 16.2 % (11.7-14.4)
[2022-10-15 08:38] LABS: INR 1.1; PROTHROMBIN TIME 14.7 seconds (11.9-14.5)
[2022-10-15 08:39] LABS: PARTIAL THROMBOPLASTIN TIME 34.5 seconds (23.8-35.5)
[2022-10-15 08:47] LABS: ALBUMIN 3.3 g/dL (3.5-5.0); ALBUMIN/GLOBULIN RATIO 0.8 (0.8-2.0); ANION GAP 13.2 mmol/L (8-16); CALCIUM 8.9 mg/dL (8.4-10.2); CREATININE, SERUM 0.66 mg/dL (0.57-1.11); POTASSIUM 4.2 mmol/L (3.5-5.1)
[~2022-10-20] MED LIST changes: +BUPIVACAINE HCL 0.5% INJ 30 ML VIAL INJ ONE; +CEFAZOLIN SODIUM 2 GM ONE; +DEXAMETHASONE SOD PHOS 10 MG/1 ML VIAL ONE; +DEXMEDETOMIDINE HCL 2 ML ONE; +EPHEDRINE SULFATE INJ 50 MG/ML VIAL ONE; +FAMOTIDINE 20 MG/2 ML VIAL IV ONE; +FENTANYL CITRATE/PF 100MCG/2 ML INJ ONE; +KETOROLAC TROMETHAMINE 30 MG/ML VIAL ONE; +LIDOCAINE HCL 2% LOCAL INJ 5 ML SDV VIAL INJ ONE; +METOCLOPRAMIDE HCL 10 MG/2ML VIAL ONE; +MIDAZOLAM HCL 2 MG/2 ML VIAL ONE; +ONDANSETRON HCL INJ 2MG/ML 2ML 2 MG/ML VIAL ONE; +PHENYLEPHRINE HCL 1% 10 MG/ML VIAL ONE; +POVIDONE IODINE 0.05% 0.05 % ML PO ONE; +PROPOFOL IV EMULSION 10 MG/ML 20 ML VIAL ONE; +ROPIVACAINE 0.5% 5 MG/ML 30 ML SDV ONE; +SEVOFLURANE INHAL SOLN 250 ML PEN BTL ONE; +SODIUM CHLORIDE 0.9% INJ 10 ML VIAL ONE
[2022-10-20 09:55] VITALS: BP 111/68
== END | disposition home or self-care (01) ==
LOC: OR 05:28
PROVIDERS: ATTEND Orthopaedic Surgery
DX: S52.571A Other intraarticular fracture of lower end of right radius, initial encounter for closed fracture (principal); D64.9 Anemia, unspecified; E11.9 Type 2 diabetes mellitus without complications; I10 Essential (primary) hypertension; H54.62 Unqualified visual loss, left eye, normal vision right eye; K74.60 Unspecified cirrhosis of liver; K21.9 Gastro-esophageal reflux disease without esophagitis; X58.XXXA Exposure to other specified factors, initial encounter; Z01.810 Encounter for preprocedural cardiovascular examination; Z01.812 Encounter for preprocedural laboratory examination; Z79.84 Long term (current) use of oral hypoglycemic drugs; Z79.899 Other long term (current) drug therapy
CPT/HCPCS: 25609; 36415 ×2; 80053; 82948; 85025; 85610; 85730; 93005; C1713 ×5; C1769; J1100; J1885; J2001; J2250; J2370; J2405; J2704; J2765; J2795; J3010; 76000

== ENCOUNTER 2022-11-04 11:22 | Outpatient (RCR) | payer MEDICARE ==
[~2022-11-04 11:22] MED LIST changes: -BUPIVACAINE HCL 0.5% INJ 30 ML VIAL INJ ONE; -CEFAZOLIN SODIUM 2 GM ONE; -DEXAMETHASONE SOD PHOS 10 MG/1 ML VIAL ONE; -DEXMEDETOMIDINE HCL 2 ML ONE; -EPHEDRINE SULFATE INJ 50 MG/ML VIAL ONE; -FAMOTIDINE 20 MG/2 ML VIAL IV ONE; -FENTANYL CITRATE/PF 100MCG/2 ML INJ ONE; -KETOROLAC TROMETHAMINE 30 MG/ML VIAL ONE; -LIDOCAINE HCL 2% LOCAL INJ 5 ML SDV VIAL INJ ONE; -METOCLOPRAMIDE HCL 10 MG/2ML VIAL ONE; -MIDAZOLAM HCL 2 MG/2 ML VIAL ONE; -ONDANSETRON HCL INJ 2MG/ML 2ML 2 MG/ML VIAL ONE; -PHENYLEPHRINE HCL 1% 10 MG/ML VIAL ONE; -POVIDONE IODINE 0.05% 0.05 % ML PO ONE; -PROPOFOL IV EMULSION 10 MG/ML 20 ML VIAL ONE; -ROPIVACAINE 0.5% 5 MG/ML 30 ML SDV ONE; -SEVOFLURANE INHAL SOLN 250 ML PEN BTL ONE; -SODIUM CHLORIDE 0.9% INJ 10 ML VIAL ONE
== END 2022-11-05 ==
LOC: OT 11:22
PROVIDERS: ATTEND Orthopaedic Surgery
DX: M25.531 Pain in right wrist (principal)

== ENCOUNTER 2022-12-02 14:00 | Outpatient (RCR) | payer MEDICARE | END 2022-12-05 | LOC: PT 14:00 | PROVIDERS: ATTEND Orthopaedic Surgery | DX: S52.571D Other intraarticular fracture of lower end of right radius, subsequent encounter for closed fracture with routine healing (principal) | CPT/HCPCS: 97010 ×2; 97110 ×3; 97140 ×2; C9113 ==

== ENCOUNTER 2022-12-13 08:55 | Outpatient (RCR) | payer MEDICARE ==
[2023-01-07] MEDS ORDERED: LANTUS 3ML100 UNITS/ SC (08:27)
== END 2023-01-05 ==
LOC: OT 08:55
PROVIDERS: ATTEND Orthopaedic Surgery
DX: S52.571D Other intraarticular fracture of lower end of right radius, subsequent encounter for closed fracture with routine healing (principal)

== ENCOUNTER → 2023-01-12 | Day surgery (SDC) | payer MEDICARE ==
[2023-01-07 09:05] LABS: BASOPHILS % 0.3 % (0.0-1.0); EOSINOPHILS # (AUTO) 0.1 (0.0-0.4); EOSINOPHILS % 3.4 % (0.0-6.0); HEMATOCRIT 37.3 % (34.2-44.1); HEMOGLOBIN 12.1 g/dL (12.0-16.0); LYMPHOCYTES # (AUTO) 0.9 (1.0-3.2); LYMPHOCYTES % 31.8 % (18.0-39.1); MEAN CORPUSCULAR HEMOGLOBIN 31.7 pg (28-32); MEAN CORPUSCULAR HGB CONC 32.4 g/dL (31-35); MEAN CORPUSCULAR VOLUME 97.6 fL (81-99); MONOCYTES # (AUTO) 0.3 (0.2-0.8); MONOCYTES % 8.4 % (4.4-11.3); NEUTROPHILS # (AUTO) 1.7 (2.1-6.9); NEUTROPHILS % 55.8 % (38.7-80.0); PLATELET COUNT 59 x10e3/uL (140-360); RED BLOOD COUNT 3.82 x10e6/uL (3.6-5.1); RED CELL DISTRIBUTION WIDTH 14.6 % (11.7-14.4)
[2023-01-07 09:15] LABS: INR 1.04; PROTHROMBIN TIME 14.1 seconds (11.9-14.5)
[2023-01-07 09:16] LABS: PARTIAL THROMBOPLASTIN TIME 30.9 seconds (23.8-35.5)
[2023-01-07 09:23] LABS: ALBUMIN 3.6 g/dL (3.5-5.0); ALBUMIN/GLOBULIN RATIO 0.9 (0.8-2.0); ANION GAP 14.5 mmol/L (8-16); CALCIUM 9.2 mg/dL (8.4-10.2); CREATININE, SERUM 0.73 mg/dL (0.57-1.11); POTASSIUM 4.5 mmol/L (3.5-5.1)
[~2023-01-12] MED LIST changes: +FENTANYL CITRATE/PF 100MCG/2 ML INJ ONE; +KETAMINE HCL INJ 50 MG/ML 10 ML VIAL ONE; +LACTATED RINGER'S 1,000 ML ONE; +LANTUS 3ML100 UNITS/ SC; +LIDOCAINE HCL 2% LOCAL INJ 5 ML SDV VIAL INJ ONE; +PHENYLEPHRINE HCL 1% 10 MG/ML VIAL ONE; +PROPOFOL IV EMULSION 10 MG/ML 20 ML VIAL ONE; +SODIUM CHLORIDE 0.9% 500ML 500 ML ONE
[2023-01-12 08:01] VITALS: TEMP 98.3
[2023-01-12 08:15] VITALS: BP 101/57; PULSE 74; RESP 16; O2SAT 98
== END | disposition home or self-care (01) ==
LOC: OR 05:30
PROVIDERS: ATTEND Internal Medicine Gastroenterology
DX: K74.60 Unspecified cirrhosis of liver (principal); I85.10 Secondary esophageal varices without bleeding; K76.6 Portal hypertension; K31.89 Other diseases of stomach and duodenum; K21.9 Gastro-esophageal reflux disease without esophagitis; D64.9 Anemia, unspecified; I10 Essential (primary) hypertension; E78.5 Hyperlipidemia, unspecified; E11.9 Type 2 diabetes mellitus without complications; H54.62 Unqualified visual loss, left eye, normal vision right eye; Z01.812 Encounter for preprocedural laboratory examination; Z79.4 Long term (current) use of insulin; Z79.84 Long term (current) use of oral hypoglycemic drugs; Z79.899 Other long term (current) drug therapy
CPT/HCPCS: 36415 ×2; 43244; 80053; 82948; 85025; 85610; 85730; C9113; J2001; J2370; J2704; J3010; J7040; J7121; 43255

== ENCOUNTER 2023-11-01 09:53 | Emergency (ER) | payer MEDICARE ==
[~2023-11-01] VITALS: Ht 154.9 cm; Wt 68.9 kg
[~2023-11-01 09:53] MED LIST changes: +ACTOS15 MG PO; +CYMBALTA30 MG; +DOCUSATE SODIU100 MG PO; -FENTANYL CITRATE/PF 100MCG/2 ML INJ ONE; +JARDIANCE25 MG; -KETAMINE HCL INJ 50 MG/ML 10 ML VIAL ONE; -LACTATED RINGER'S 1,000 ML ONE; +LACTULOSE10 GM/151 PO; -LIDOCAINE HCL 2% LOCAL INJ 5 ML SDV VIAL INJ ONE; -PHENYLEPHRINE HCL 1% 10 MG/ML VIAL ONE; -PROPOFOL IV EMULSION 10 MG/ML 20 ML VIAL ONE; -SODIUM CHLORIDE 0.9% 500ML 500 ML ONE
[2023-11-01 10:12] VITALS: O2SAT 99
[2023-11-01 10:48] LABS: BASOPHILS % 0.5 % (0.0-1.0); EOSINOPHILS # (AUTO) 0.1 (0.0-0.4); EOSINOPHILS % 2.4 % (0.0-6.0); HEMATOCRIT 32.8 % (34.2-44.1); HEMOGLOBIN 11.3 g/dL (12.0-16.0); LYMPHOCYTES # (AUTO) 0.9 (1.0-3.2); MEAN CORPUSCULAR HEMOGLOBIN 32.7 pg (28-32); MEAN CORPUSCULAR HGB CONC 34.5 g/dL (31-35); MEAN CORPUSCULAR VOLUME 94.8 fL (81-99); MONOCYTES # (AUTO) 0.6 (0.2-0.8); MONOCYTES % 13.2 % (4.4-11.3); NEUTROPHILS # (AUTO) 2.7 (2.1-6.9); NEUTROPHILS % 62.7 % (38.7-80.0); PLATELET COUNT 46 x10e3/uL (140-360); RED BLOOD COUNT 3.46 x10e6/uL (3.6-5.1); RED CELL DISTRIBUTION WIDTH 15.8 % (11.7-14.4); WHITE BLOOD COUNT 4.24 x10e3/uL (4.8-10.8)
[2023-11-01 10:53] LABS: BILIRUBIN,URINE SMALL (NEGATIVE); CLARITY,URINE CLOUDY (CLEAR); COLOR,URINE YELLOW (YELLOW); GLUCOSE, URINE 1+ (NEGATIVE); KETONES,URINE 1+ (NEGATIVE); LEUKOCYTE ESTERASE ,URINE MODERATE (NEGATIVE); NITRITE,URINE POSITIVE (NEGATIVE); PH,URINE 6 (5 - 7); PROTEIN,URINE DIPSTICK 1+ (NEGATIVE); URINE UROBILINOGEN 1 mg/dL (0.2 - 1)
[2023-11-01 11:01] LABS: BACTERIA,URINE MANY /HPF; EPITHELIAL CELLS,URINE MANY /LPF; WBC,URINE (MAN) >50 /HPF (0-5)
[2023-11-01 11:06] LABS: ALBUMIN 3.3 g/dL (3.5-5.0); ALBUMIN/GLOBULIN RATIO 0.8 (0.8-2.0); ANION GAP 17.3 mmol/L (8-16); CALCIUM 8.6 mg/dL (8.4-10.2); CREATININE, SERUM 1.29 mg/dL (0.57-1.11); POTASSIUM 4.3 mmol/L (3.5-5.1); TOTAL PROTEIN 7.4 g/dL (6.5-8.1)
[2023-11-01] MEDS ORDERED: ONDANSETRON HCL INJ 2MG/ML 2ML 2 MG/ML VIAL IV PRN (11:30)
[2023-11-01] MEDS ORDERED: CEPHALEXIN500 MG PO (12:28)
[2023-11-01] MEDS ORDERED: LACTULOSE SYRUP 20 GM/30 ML UDC PO SCH (15:00)
== END 2023-11-01 12:52 | disposition left against medical advice (07) ==
LOC: ER 10:00 → UNDOADMIN 11:18 → ERHOLD 11:18 → UNDODISIN 12:52
DX: N39.0 Urinary tract infection, site not specified (principal); K76.82 Hepatic encephalopathy; K70.30 Alcoholic cirrhosis of liver without ascites; E11.9 Type 2 diabetes mellitus without complications; K21.9 Gastro-esophageal reflux disease without esophagitis; Z53.29 Procedure and treatment not carried out because of patient's decision for other reasons; Z63.6 Dependent relative needing care at home; M79.7 Fibromyalgia
CPT/HCPCS: 36415; 70450; 72125; 80053; 81001; 82140; 83036; 84484; 85025; 87086; 87186; 93005; 99284

== ENCOUNTER 2024-03-03 08:27 | Inpatient (IN) | payer MEDICARE ==
[2024-03-03] VITALS (47 sets, daily range): BP systolic 81–146; BP diastolic 36–78; PULSE 59–87; RESP 9–20; TEMP 94.7–99.4; O2SAT 95–100
[~2024-03-03] VITALS: Ht 152.4 cm; Wt 71.4 kg
[~2024-03-03 08:27] MED LIST changes: +CEFDINIR300 MG PO; +CEPHALEXIN500 MG PO; +MACROBID 100 M100 MG PO; +TOUJEO SQ; +ULTRAM 50MG50 MG PO
[2024-03-03 09:03] LABS: BASOPHILS % 0.5 % (0.0-1.0); EOSINOPHILS # (AUTO) 0.2 (0.0-0.4); EOSINOPHILS % 5.2 % (0.0-6.0); HEMATOCRIT 23.3 % (34.2-44.1); HEMOGLOBIN 7.4 g/dL (12.0-16.0); LYMPHOCYTES # (AUTO) 0.9 (1.0-3.2); MEAN CORPUSCULAR HEMOGLOBIN 33.9 pg (28-32); MEAN CORPUSCULAR HGB CONC 31.8 g/dL (31-35); MEAN CORPUSCULAR VOLUME 106.9 fL (81-99); MONOCYTES # (AUTO) 0.5 (0.2-0.8); MONOCYTES % 11.7 % (4.4-11.3); NEUTROPHILS # (AUTO) 2.2 (2.1-6.9); NEUTROPHILS % 58.1 % (38.7-80.0); PLATELET COUNT 59 x10e3/uL (140-360); RED BLOOD COUNT 2.18 x10e6/uL (3.6-5.1); RED CELL DISTRIBUTION WIDTH 16.5 % (11.7-14.4); WHITE BLOOD COUNT 3.84 x10e3/uL (4.8-10.8)
[2024-03-03 09:20] LABS: ALBUMIN 2.6 g/dL (3.5-5.0); ALBUMIN/GLOBULIN RATIO 0.7 (0.8-2.0); ANION GAP 11.3 mmol/L (8-16); CALCIUM 8.6 mg/dL (8.4-10.2); CREATININE, SERUM 2.03 mg/dL (0.57-1.11); TOTAL PROTEIN 6.2 g/dL (6.5-8.1)
[2024-03-03] MEDS: MEROPENEM 1 GM in SODIUM CHLORIDE 0.9% 100 ML IV SCH (09:20)
[2024-03-03 09:23] LABS: POTASSIUM 5.3 mmol/L (3.5-5.1)
[2024-03-03 09:25] LABS: BILIRUBIN,URINE NEGATIVE (NEGATIVE); CLARITY,URINE TURBID (CLEAR); COLOR,URINE YELLOW (YELLOW); GLUCOSE, URINE NEGATIVE (NEGATIVE); KETONES,URINE TRACE (NEGATIVE); LEUKOCYTE ESTERASE ,URINE MODERATE (NEGATIVE); NITRITE,URINE NEGATIVE (NEGATIVE); PH,URINE 5.5 (5 - 7); PROTEIN,URINE DIPSTICK NEGATIVE (NEGATIVE); WBC,URINE (MAN) >50 /HPF (0-5)
[2024-03-03] MEDS: SODIUM CHLORIDE 0.9% 1000ML 1,000 ML IV SCH ×2 (09:25→10:53)
[2024-03-03 09:26] LABS: BACTERIA,URINE MANY /HPF; EPITHELIAL CELLS,URINE FEW /LPF; RBC,URINE 0-5 /HPF (0-5)
[2024-03-03] MEDS: MIDODRINE 2.5 MG TAB PO SCH (09:30)
[2024-03-03] MEDS ORDERED: DEXTROSE 50% SYRINGE 50 ML IV ONE (09:36)
[2024-03-03] MEDS ORDERED: MIDODRINE HCL 5 MG TABLET ONE (09:37)
[2024-03-03] MEDS: DEXTROSE 50% SYRINGE 50 ML IV STA (09:44)
[2024-03-03] MEDS ORDERED: LACTULOSE SYRUP 20 GM/30 ML UDC PO PRN (09:45)
[2024-03-03] MEDS ORDERED: NOREPINEPHRINE 8 MG/D5W 250 ML 250 ML ONE (10:13)
[2024-03-03] MEDS: LACTULOSE SYRUP 20 GM/30 ML UDC PO SCH (10:45)
[2024-03-03] MEDS: NOREPINEPHRINE 8 MG/D5W 250 ML 250 ML IV SCH ×2 (10:52→13:32)
[2024-03-03] MEDS: VASOPRESSIN 60 UNIT in DEXTROSE 5% 50ML 57 ML IV SCH (11:00)
[2024-03-03] MEDS: ALBUMIN 25% 25GM 100ML 0.25 GM/ML BTL IV SCH (13:25)
[2024-03-03] MEDS: SOD POLYSTYRENE SULFONATE SUSP 15 GM/60 ML BTL PO ONE (14:06)
[2024-03-03] MEDS: LACTULOSE SYRUP 20 GM/30 ML UDC RC ONE (15:06)
[2024-03-03] MEDS: RIFAXIMIN 550 MG TABLET PO SCH (16:02)
[2024-03-03] MEDS ORDERED: SEROQUEL100 MG PO (17:37)
[2024-03-04] VITALS (34 sets, daily range): BP systolic 104–157; BP diastolic 44–84; PULSE 70–90; RESP 9–24; TEMP 97.7–99.7; O2SAT 96–100
[2024-03-04] MEDS: AMITRIPTYLINE HCL 25 MG TAB PO PRN (01:16)
[2024-03-04] MEDS: LACTULOSE SYRUP 20 GM/30 ML UDC PO ONE (01:46)
[2024-03-04 03:42] LABS: % IRON SATURATION 20 % (15-50); IRON 90 ug/dL (50-170); TOTAL IRON BINDING CAPACITY 452 ug/dL (261-478); TRANSFERRIN 323 mg/dL (180-382)
[2024-03-04] MEDS ORDERED: PANTOPRAZOLE SOD 40 MG TABEC PO SCH (06:00)
[2024-03-04 07:19] LABS: EOSINOPHILS # (AUTO) 0.1 (0.0-0.4); EOSINOPHILS % 2.5 % (0.0-6.0); LYMPHOCYTES # (AUTO) 0.5 (1.0-3.2); LYMPHOCYTES % 19.2 % (18.0-39.1); MEAN CORPUSCULAR HEMOGLOBIN 33.2 pg (28-32); MEAN CORPUSCULAR HGB CONC 30.8 g/dL (31-35); MEAN CORPUSCULAR VOLUME 107.6 fL (81-99); MONOCYTES # (AUTO) 0.3 (0.2-0.8); MONOCYTES % 11.7 % (4.4-11.3); NEUTROPHILS # (AUTO) 1.6 (2.1-6.9); NEUTROPHILS % 66.2 % (38.7-80.0); RED BLOOD COUNT 1.84 x10e6/uL (3.6-5.1); RED CELL DISTRIBUTION WIDTH 16.4 % (11.7-14.4); WHITE BLOOD COUNT 2.39 x10e3/uL (4.8-10.8)
[2024-03-04 07:24] LABS: HEMATOCRIT 19.8 % (34.2-44.1); HEMOGLOBIN 6.1 g/dL (12.0-16.0); PLATELET COUNT 41 x10e3/uL (140-360)
[2024-03-04 07:32] LABS: CREATININE, SERUM 0.99 mg/dL (0.57-1.11)
[2024-03-04 08:03] LABS: ANION GAP 7.8 mmol/L (8-16); CALCIUM 9.4 mg/dL (8.0-10.3); POTASSIUM 4.8 mmol/L (3.0-5.1)
[2024-03-04] MEDS ORDERED: SPIRONOLACTONE 25 MG TAB PO SCH (09:00)
[2024-03-04] MEDS: LACTULOSE SYRUP 20 GM/30 ML UDC PO SCH (09:32)
[2024-03-04] MEDS: MIDODRINE HCL 5 MG TABLET PO SCH (12:00)
[2024-03-04] MEDS: SODIUM CHLORIDE 0.9% 250ML 250 ML IV ONE (13:15)
[2024-03-05] VITALS (19 sets, daily range): BP systolic 119–147; BP diastolic 62–84; PULSE 77–93; RESP 12–22; TEMP 97.7–101; O2SAT 98–100
[2024-03-05 06:42] LABS: BASOPHILS % 0.4 % (0.0-1.0); EOSINOPHILS # (AUTO) 0.1 (0.0-0.4); EOSINOPHILS % 2.8 % (0.0-6.0); HEMATOCRIT 23.9 % (34.2-44.1); HEMOGLOBIN 7.5 g/dL (12.0-16.0); LYMPHOCYTES # (AUTO) 0.6 (1.0-3.2); LYMPHOCYTES % 23.1 % (18.0-39.1); MEAN CORPUSCULAR HEMOGLOBIN 32.9 pg (28-32); MEAN CORPUSCULAR HGB CONC 31.4 g/dL (31-35); MEAN CORPUSCULAR VOLUME 104.8 fL (81-99); MONOCYTES # (AUTO) 0.3 (0.2-0.8); MONOCYTES % 11.6 % (4.4-11.3); NEUTROPHILS # (AUTO) 1.5 (2.1-6.9); NEUTROPHILS % 61.3 % (38.7-80.0); PLATELET COUNT 60 x10e3/uL (140-360); RED BLOOD COUNT 2.28 x10e6/uL (3.6-5.1); RED CELL DISTRIBUTION WIDTH 18.3 % (11.7-14.4); WHITE BLOOD COUNT 2.51 x10e3/uL (4.8-10.8)
[2024-03-05 07:01] LABS: ALBUMIN 3.5 g/dL (3.5-5.0); ALBUMIN/GLOBULIN RATIO 1.3 (0.8-2.0); ANION GAP 12.2 mmol/L (8-16); BILIRUBIN,TOTAL 1.4 mg/dL (0.2-1.2); CALCIUM 8.7 mg/dL (8.4-10.2); CREATININE, SERUM 0.73 mg/dL (0.57-1.11); POTASSIUM 4.2 mmol/L (3.5-5.1); TOTAL PROTEIN 6.3 g/dL (6.5-8.1)
[2024-03-05] MEDS: ACETAMINOPHEN 325 MG TAB PO ONE (11:19)
[2024-03-05] MEDS: QUETIAPINE FUMARATE 25 MG TAB PO ONE (11:22)
[2024-03-05] MEDS: QUETIAPINE FUMARATE 100 MG TAB PO SCH (21:00)
[2024-03-05] MEDS: AMITRIPTYLINE HCL 25 MG TAB PO SCH (21:00)
[2024-03-06] VITALS (9 sets, daily range): BP systolic 130–156; BP diastolic 68–84; PULSE 87–96; RESP 18–21; TEMP 97.6–99.3; O2SAT 97–100
[2024-03-06] MEDS: BALSAM PERU/CASTOR OIL 60 GM OINT...G. TP SCH (10:02)
[2024-03-06] MEDS: AMITRIPTYLINE HCL 25 MG TAB PO SCH (16:38)
[2024-03-06] MEDS: SODIUM CHLORIDE 0.9% 250ML 250 ML ONE (21:56)
[2024-03-07] VITALS (10 sets, daily range): BP systolic 116–159; BP diastolic 61–80; PULSE 76–97; RESP 17–18; TEMP 97.6–98.7; O2SAT 96–100
[2024-03-07 05:50] LABS: BASOPHILS % 0.4 % (0.0-1.0); EOSINOPHILS # (AUTO) 0.1 (0.0-0.4); EOSINOPHILS % 2.2 % (0.0-6.0); HEMATOCRIT 25.3 % (34.2-44.1); HEMOGLOBIN 8.1 g/dL (12.0-16.0); LYMPHOCYTES # (AUTO) 0.4 (1.0-3.2); MEAN CORPUSCULAR HEMOGLOBIN 33.1 pg (28-32); MEAN CORPUSCULAR VOLUME 103.3 fL (81-99); MONOCYTES # (AUTO) 0.2 (0.2-0.8); MONOCYTES % 8.8 % (4.4-11.3); NEUTROPHILS # (AUTO) 1.6 (2.1-6.9); NEUTROPHILS % 69.7 % (38.7-80.0); PLATELET COUNT 35 x10e3/uL (140-360); RED BLOOD COUNT 2.45 x10e6/uL (3.6-5.1); RED CELL DISTRIBUTION WIDTH 16.5 % (11.7-14.4); WHITE BLOOD COUNT 2.28 x10e3/uL (4.8-10.8)
[2024-03-07 06:36] LABS: ANION GAP 10.5 mmol/L (8-16); CALCIUM 8.6 mg/dL (8.4-10.2); CREATININE, SERUM 0.66 mg/dL (0.57-1.11); POTASSIUM 3.5 mmol/L (3.5-5.1)
[2024-03-07] MEDS: LACTULOSE SYRUP 20 GM/30 ML UDC PO SCH (08:42)
[2024-03-08] VITALS (10 sets, daily range): BP systolic 136–159; BP diastolic 67–94; PULSE 87–103; RESP 16–19; TEMP 97.1–98.6; O2SAT 95–99
[2024-03-08] MEDS: TRAMADOL HCL 50 MG TAB PO PRN (14:53)
[2024-03-09] VITALS (10 sets, daily range): BP systolic 135–158; BP diastolic 72–87; PULSE 83–94; RESP 16–20; TEMP 98.2–99; O2SAT 95–100
[2024-03-10] VITALS (10 sets, daily range): BP systolic 130–151; BP diastolic 71–89; PULSE 56–103; RESP 17–20; TEMP 97.6–98.3; O2SAT 96–100
[2024-03-10 05:49] LABS: BASOPHILS % 0.4 % (0.0-1.0); EOSINOPHILS # (AUTO) 0.1 (0.0-0.4); EOSINOPHILS % 2.2 % (0.0-6.0); HEMATOCRIT 25.5 % (34.2-44.1); HEMOGLOBIN 8.2 g/dL (12.0-16.0); LYMPHOCYTES # (AUTO) 0.5 (1.0-3.2); LYMPHOCYTES % 18.8 % (18.0-39.1); MEAN CORPUSCULAR HEMOGLOBIN 33.3 pg (28-32); MEAN CORPUSCULAR HGB CONC 32.2 g/dL (31-35); MEAN CORPUSCULAR VOLUME 103.7 fL (81-99); MONOCYTES # (AUTO) 0.3 (0.2-0.8); NEUTROPHILS # (AUTO) 1.9 (2.1-6.9); NEUTROPHILS % 68.2 % (38.7-80.0); RED BLOOD COUNT 2.46 x10e6/uL (3.6-5.1); RED CELL DISTRIBUTION WIDTH 16.3 % (11.7-14.4); WHITE BLOOD COUNT 2.71 x10e3/uL (4.8-10.8)
[2024-03-10 05:51] LABS: PLATELET COUNT 39 x10e3/uL (140-360)
[2024-03-10 06:23] LABS: ANION GAP 8.5 mmol/L (8-16); CALCIUM 9.1 mg/dL (8.4-10.2); CREATININE, SERUM 0.64 mg/dL (0.57-1.11); MAGNESIUM 1.6 MG/DL (1.3-2.1); POTASSIUM 3.5 mmol/L (3.5-5.1)
[2024-03-11] VITALS (10 sets, daily range): BP systolic 129–153; BP diastolic 73–91; PULSE 80–90; RESP 18–20; TEMP 97.6–98.4; O2SAT 95–100
[2024-03-12] VITALS: BP 127/77; PULSE 84; RESP 18; TEMP 98.2; O2SAT 100
[2024-03-12 06:29] VITALS: PULSE 75; RESP 20; O2SAT 94
[2024-03-12 08:00] VITALS: BP 117/71; PULSE 82; RESP 17; TEMP 98.4; O2SAT 98
[2024-03-12 08:07] VITALS: BP 117/71; PULSE 82; RESP 17; TEMP 98.4; O2SAT 98
[2024-03-12 12:08] VITALS: BP 124/81; PULSE 95; RESP 17; TEMP 98.8; O2SAT 100
[2024-03-12] MEDS ORDERED: LACTULOSE20 GM/30 M PO (13:08)
[2024-03-12] MEDS ORDERED: XIFAXAN550 MG PO (13:08)
[2024-03-12 13:27] LABS: ANION GAP 13.1 mmol/L (8-16); CREATININE, SERUM 0.78 mg/dL (0.57-1.11); MAGNESIUM 1.7 MG/DL (1.3-2.1)
[2024-03-12 13:28] LABS: POTASSIUM 3.1 mmol/L (3.5-5.1)
[2024-03-12] MEDS: MAGNESIUM SULFATE 2GM/50ML 50 ML IV ONE (14:00)
[2024-03-12] MEDS: POTASSIUM CHLORIDE 20 MEQ TAB CR PO ONE (14:00)
[2024-03-12 16:12] VITALS: BP 144/84; PULSE 94; RESP 16; TEMP 98.8; O2SAT 100
[2024-03-12 21:03] LABS: HEPATITIS B SURFACE AG (P) Non Reactive; HEPATITIS C ANTIBODY Non Reactive
[2024-03-13] MEDS ORDERED: PANTOPRAZOLE SOD 40 MG TABEC PO SCH (06:00)
== END 2024-03-12 21:29 | disposition home health service (06) | DRG 871 ==
LOC: ER 08:31 → ERHOLD 09:42 → ICU 11:15 → MED/SURG3 03-05 11:56
PROVIDERS: ADMIT Internal Medicine; ATTEND Internal Medicine
PROC: 06HY33Z Insertion of Infusion Device into Lower Vein, Percutaneous Approach (ICD-10-PCS; principal; 2024-03-03)
PROC: 3E0333Z Introduction of Anti-inflammatory into Peripheral Vein, Percutaneous Approach (ICD-10-PCS; 2024-03-03)
PROC: 3E033XZ Introduction of Vasopressor into Peripheral Vein, Percutaneous Approach (ICD-10-PCS; 2024-03-03)
PROC: 30233N1 Transfusion of Nonautologous Red Blood Cells into Peripheral Vein, Percutaneous Approach (ICD-10-PCS; 2024-03-04)
DX: A41.9 Sepsis, unspecified organism (principal); G93.41 Metabolic encephalopathy; L89.323 Pressure ulcer of left buttock, stage 3; S42.91XA Fracture of right shoulder girdle, part unspecified, initial encounter for closed fracture; S52.92XA Unspecified fracture of left forearm, initial encounter for closed fracture; N17.9 Acute kidney failure, unspecified; Z16.12 Extended spectrum beta lactamase (ESBL) resistance; K76.6 Portal hypertension; N12 Tubulo-interstitial nephritis, not specified as acute or chronic; D68.59 Other primary thrombophilia; D61.818 Other pancytopenia; K76.82 Hepatic encephalopathy; L89.156 Pressure-induced deep tissue damage of sacral region; K70.30 Alcoholic cirrhosis of liver without ascites; N30.90 Cystitis, unspecified without hematuria; N18.9 Chronic kidney disease, unspecified; E87.5 Hyperkalemia; F10.20 Alcohol dependence, uncomplicated; Z11.52 Encounter for screening for COVID-19; R68.0 Hypothermia, not associated with low environmental temperature; E66.9 Obesity, unspecified; R29.6 Repeated falls; R53.81 Other malaise; Z68.31 Body mass index [BMI] 31.0-31.9, adult; B96.20 Unspecified Escherichia coli [E. coli] as the cause of diseases classified elsewhere; H54.8 Legal blindness, as defined in USA; Z79.4 Long term (current) use of insulin; Z79.84 Long term (current) use of oral hypoglycemic drugs; Z90.49 Acquired absence of other specified parts of digestive tract; Z91.148 Patient's other noncompliance with medication regimen for other reason; Z74.01 Bed confinement status; W19.XXXA Unspecified fall, initial encounter
CPT/HCPCS: 36415; 51700; 70450; 71045; 76700; 80048; 80053; 81001; 82140; 82607; 82746; 82948; 83540; 83605; 83735; 84300; 84466; 84484; 85025; 85045; 86850; 86900; 86920; 87040; 87086; 87186; 93005; 94799; 99252; 99285; J2185; J2470; J3475; J7030; J7050; J7799; P9016; P9047; U0002

== ENCOUNTER 2025-02-11 12:26 | Emergency (ER) | payer MEDICARE ==
[~2025-02-11] VITALS: Ht 152.4 cm; Wt 71.2 kg
[~2025-02-11 12:26] MED LIST changes: +LACTULOSE20 GM/30 M PO; +SEROQUEL100 MG PO
[2025-02-11 13:19] VITALS: TEMP 98.4
[2025-02-11 13:52] LABS: BASOPHILS % 0.4 % (0.0-1.0); EOSINOPHILS % 2.8 % (0.0-6.0); LYMPHOCYTES % 18.4 % (18.0-39.1); MONOCYTES % 6.7 % (4.4-11.3); NEUTROPHILS % 71.3 % (38.7-80.0); RED CELL DISTRIBUTION WIDTH 18.0 % (11.7-14.4)
[2025-02-11 14:12] LABS: EST GLOMERULAR FILTRATION RATE 83.0 ML/MIN (>=60)
[2025-02-11 15:30] VITALS: PULSE 79; RESP 14; O2SAT 98
[2025-02-11 16:15] LABS: PLATELET ESTIMATE MARKEDLY DECREASED; PLATELET MORPHOLOGY COMMENT NORMAL; RBC MORPHOLOGY COMMENT NORMAL
[2025-02-14] MEDS ORDERED: CEFUROXIME250 MG PO (15:02)
== END 2025-02-11 15:45 | disposition home or self-care (01) ==
LOC: ER 13:45
DX: I95.9 Hypotension, unspecified (principal); E11.65 Type 2 diabetes mellitus with hyperglycemia; K76.9 Liver disease, unspecified; K21.9 Gastro-esophageal reflux disease without esophagitis; M79.7 Fibromyalgia
CPT/HCPCS: 36415; 80053; 82140; 83880; 85025; 99283

== ENCOUNTER 2025-02-13 19:35 | Observation (INO) | payer MEDICARE ==
[~2025-02-13] VITALS: Ht 154.9 cm; Wt 70.3 kg
[2025-02-13 19:55] VITALS: TEMP 98
[2025-02-13 20:46] LABS: BASOPHILS % 0.4 % (0.0-1.0); EOSINOPHILS % 3.7 % (0.0-6.0); LYMPHOCYTES % 16.9 % (18.0-39.1); MONOCYTES % 9.0 % (4.4-11.3); NEUTROPHILS % 70.0 % (38.7-80.0); RED CELL DISTRIBUTION WIDTH 17.9 % (11.7-14.4)
[2025-02-13 20:54] LABS: LEUKOCYTE ESTERASE ,URINE TRACE (NEGATIVE); PROTEIN,URINE DIPSTICK TRACE (NEGATIVE); URINE UROBILINOGEN 1 mg/dL (0.2 - 1)
[2025-02-13 20:58] LABS: EPITHELIAL CELLS,URINE FEW /LPF
[2025-02-13] MEDS: SODIUM CHLORIDE 0.9% 1000ML 1,000 ML IV ONE ×2 (21:09→23:45)
[2025-02-13 21:10] LABS: EST GLOMERULAR FILTRATION RATE 76.0 ML/MIN (>=60)
[2025-02-13] MEDS ORDERED: DEXTROSE 50% SYRINGE 50 ML IV PRN (21:45)
[2025-02-13] MEDS ORDERED: LACTULOSE SYRUP 20 GM/30 ML UDC PO PRN (21:45)
[2025-02-13] MEDS ORDERED: ONDANSETRON HCL INJ 2MG/ML 2ML 2 MG/ML VIAL IV PRN (21:45)
[2025-02-13 21:49] VITALS: PULSE 82; RESP 14
[2025-02-13] MEDS ORDERED: QUETIAPINE FUM300 MG PO (22:49)
[2025-02-13] MEDS ORDERED: CYCLOBENZAPRIN7.5 MG PO (22:49)
[2025-02-13] MEDS ORDERED: AMITRIPTYLINE100 MG PO (22:49)
[2025-02-13] MEDS ORDERED: INDERAL20 MG PO (22:49)
[2025-02-13] MEDS ORDERED: GABAPENTIN600 MG PO (22:49)
[2025-02-13] MEDS ORDERED: HYDROCODON-ACE1 EAC9 PO (22:49)
[2025-02-13] MEDS ORDERED: TOUJEO SOL300 UNIT/1 SQ (22:49)
[2025-02-13] MEDS ORDERED: GLIPIZIDE10 MG PO (22:49)
[2025-02-13 23:20] VITALS: BP 112/69; O2SAT 99
[2025-02-13 23:57] VITALS: PULSE 77; RESP 12; O2SAT 97
[2025-02-14] VITALS (7 sets, daily range): BP systolic 90–144; BP diastolic 60–73; PULSE 78–85; RESP 16–20; TEMP 97.5–98.2; O2SAT 96–100
[2025-02-14 05:26] LABS: BASOPHILS % 0.0 % (0.0-1.0); EOSINOPHILS % 2.5 % (0.0-6.0); LYMPHOCYTES % 22.5 % (18.0-39.1); MONOCYTES % 14.7 % (4.4-11.3); NEUTROPHILS % 59.8 % (38.7-80.0); RED CELL DISTRIBUTION WIDTH 17.7 % (11.7-14.4)
[2025-02-14 06:04] LABS: EST GLOMERULAR FILTRATION RATE 97.0 ML/MIN (>=60)
[2025-02-14] MEDS: INSULIN REGULAR, HUMAN 100 UNIT/1 ML SQ SCH (08:27)
[2025-02-14] MEDS ORDERED: CEFUROXIME250 MG PO (15:02)
== END 2025-02-14 17:55 | disposition home or self-care (01) ==
LOC: ER 20:07 → INTOOBSV 21:38 → ERHOLD 21:38 → MED/SURG2 22:55
PROVIDERS: ADMIT Internal Medicine; ATTEND Internal Medicine
DX: N39.0 Urinary tract infection, site not specified (principal); B96.20 Unspecified Escherichia coli [E. coli] as the cause of diseases classified elsewhere; K76.82 Hepatic encephalopathy; S02.2XXA Fracture of nasal bones, initial encounter for closed fracture; K70.30 Alcoholic cirrhosis of liver without ascites; I85.10 Secondary esophageal varices without bleeding; E11.9 Type 2 diabetes mellitus without complications; Z79.84 Long term (current) use of oral hypoglycemic drugs; I95.89 Other hypotension; M79.7 Fibromyalgia; K21.9 Gastro-esophageal reflux disease without esophagitis; Z90.49 Acquired absence of other specified parts of digestive tract; W18.30XA Fall on same level, unspecified, initial encounter; Y92.009 Unspecified place in unspecified non-institutional (private) residence as the place of occurrence of the external cause; Z79.899 Other long term (current) drug therapy
CPT/HCPCS: 36415 ×2; 70450; 70486; 72125; 80053 ×2; 81001; 82140; 82948; 84484; 85025 ×2; 87086; 87186; 93005; 94799 ×2; 99284; G0378 ×2; J0696 ×2; J7030 ×2